=== PATIENT | female | born 1995 | race Hispanic/Latino ===

== ENCOUNTER 2020-09-14 14:54 | Inpatient (IN) | payer OTHER, SELFPAY ==
[2020-09-14] MEDS ORDERED: Ringers Lactate 1,000 ML IV PRN (16:51)
[2020-09-14] MEDS ORDERED: ONDANSETRON 4 MG (ODT) TAB PO PRN (16:54)
[2020-09-14] MEDS ORDERED: ACETAMINOPHEN 500 MG TAB PO PRN (16:54)
[2020-09-14] MEDS ORDERED: Oxycodone HCl/Acetaminophen 1 TAB TAB PO PRN (16:54)
[2020-09-14] MEDS ORDERED: CARBOPROST TROME 250 MCG/ML IM PRN (16:54)
[2020-09-14] MEDS ORDERED: BISACODYL 10 MG RECTAL SUPP PR PRN (16:54)
[2020-09-14] MEDS ORDERED: DOCUSATE NA/SENNA CONC 1 TAB PO PRN (16:54)
[2020-09-14] MEDS ORDERED: METHYLERGONOVINE 0.2MG/ML AMP IM PRN (16:54)
[2020-09-14] MEDS ORDERED: OXYTOCIN/LR 20 UNIT/1,000 ML BAG IV SCH (17:00)
[2020-09-14] MEDS ORDERED: Ringers Lactate 1,000 ML IV SCH (17:00)
[2020-09-14] MEDS ORDERED: IBUPROFEN 600 MG TAB PO PRN (17:13)
[2020-09-14 18:13] LABS: Absolute Lymphocytes (CBC) 3.5 K/uL (0.7-4.9); Basophils % 0.4 % (0-1.3); Hematocrit 41.2 % (36.0-45.0); Lymphocytes % 22.2 % (15.3-44.8); MPV 10.2 fL (7.6-11.3); RBC Red Blood Cell Count 5.21 M/uL (3.86-4.86)
--- NOTE | 2020-09-14 20:40 | HP ---
Date of Admission: 09/14/2020 History Of Present Illness: Kelsea Damon is a 25-year-old, 4, para 3, history of tubal ligati on after her last in [place] [facility], then got again. Saw the people in [facility] onc e or twice according to the . She went into labor and was on the way back to [place] [facility], but decided she could not make it there. She came to our hospital, came in a wheelchair, and within next 15 minutes, delivered spontaneously of an estimated 8-pound female, Apgars 9 and 9. Small first-deg ree laceration sutured with 1 stitch 2-0 chromic under local infiltration. Schultze delivery of the placenta, which was inspected and noted to be intact and normal. Less than 200 cc blood loss. Drop- in lab is being ordered as we have no labs or information. Family History: Grandmother had diabetes. Past Medical History: Patient has had tubal sterilization. Allergies: SHE HAS NO ALLERGIES. Social History: She does not smoke. Physical Examination: HEENT: Clear. Pupils equal, round, reactive to light and accommodation. Conjunctivae well perfused . No oral, lingual, or buccal lesions. Chest and Lungs: Clear. Heart: Without murmurs, thrills, heaves, or rubs. Breasts: Not examined. Abdomen: Term size. Extremities: Clear without edema, cyanosis, or clubbing. Assessment And Plan: Essentially healthy female with a term , precipitous but controlled va ginal delivery, and after tubal sterilization. STEFFANY/CASANDRA Voice ID: [id number]
[2020-09-14 20:41] LABS: RPR (Rapid Plasma Reagin) NON-REACT (NON-REACT)
[2020-09-15] MEDS ORDERED: METHYLERGONOVINE 0.2 MG TAB PO ONE ×2 (01:06→01:12)
[2020-09-15] MEDS: Oxycodone HCl/Acetaminophen 1 TAB TAB PO PRN ×3 (01:07→12:32)
[2020-09-15] MEDS ORDERED: Rho(D) IG (HUMAN) 300 MCG SYR IM ONE ×2 (05:52→08:00)
--- NOTE | 2020-09-15 08:05 | PN ---
Once again, the patient's Rh negative. RhoGAM has been ordered. Nurses assured me that she will get the shot before she is dismissed. STEFFANY/CASANDRA Voice ID: [id number] Report ID: [id number]
--- NOTE | 2020-09-15 08:50 | DS ---
Kelsea Damon is a 25-year-old 4, para 3, seen by a clinic in [place], gave a history that s he had a tubal ligation after last and became again, was on her way to [place] as she was in labor but thought she could not make it and came in here. Delivery shortly after comin g to our Labor and Delivery Unit of a term female, Apgars 9 and 9. No episiotomy. A single first-de gree laceration repaired with 2-0 chromic 1 single stitch after local infiltration. [place] deliver y of the placenta. Estimated blood loss 300 mL or less. The patient is positive for COVID. She is absolutely no symptoms. Full discussion with patient about stay away from family members, who might not do well with the COVID. RPR is negative. Admission hematocrit was 41. Blood type O negative an d will receive RhoGAM, if the baby is Rh positive. Full discussion with the patient. She needs foll ow up with the people in [place] for control options. STEFFANY/CASANDRA Voice ID: [id number] Report ID: [id number]
[2020-09-15 14:18] VITALS: BMI 29.2
[2020-09-15 21:45] VITALS: BP 116/72; TEMP 97.8
[2020-09-17 20:49] LABS: HBsAG Nonreactive (Nonreactive)
== END 2020-09-15 21:15 | disposition home or self-care (01) | DRG 805 ==
LOC: L&D 14:54 → 2ND-WC 14:55
PROVIDERS: ADMIT Specialist; ATTEND Specialist
PROC: 10E0XZZ Delivery of Products of Conception, External Approach (ICD-10-PCS; principal; 2020-09-14)
PROC: 0HQ9XZZ Repair Perineum Skin, External Approach (ICD-10-PCS; 2020-09-14)
DX: O98.52 Other viral diseases complicating childbirth (principal); U07.1 COVID-19; Z37.0 Single live birth; O70.0 First degree perineal laceration during delivery; O26.893 Other specified pregnancy related conditions, third trimester; Z3A.40 40 weeks gestation of pregnancy; Z67.91 Unspecified blood type, Rh negative
CPT/HCPCS: 36415; 85014; 85018; 85025; 86592; 86850; 86901; 87340; J7120; U0003

== ENCOUNTER 2021-11-09 19:20 | Emergency (ER) | payer OTHER, SELFPAY ==
--- OUTSIDE RECORDS SUMMARY | 2021-11-09 19:24 | XMS REPORT | Continuity of Care Document ---
:1995 Author Organization [facility] t Address [address] [place] [address] Care Team Providers Name Role Phone CONY DUKE Attending Clinician Unavailable NURSE, NURSE Attending Clinician Unavailable OUSMANE, DR CLANCY Attending Clinician Unavailable RENETTA, DR PETE GOMEZ Attending Clinician Unavailable ATCORNELL, Attending Clinician Unavailable [facility] Attending Clinician Unavailable Rome LINDO Attending Clinician [phone] LEILANI Attending Clinician [phone] DR KENNA Attending Clinician Unavailable DR OUSMANE Admitting Clinician Unavailable RENETTA, DR GOMEZ Admitting Clinician Unavailable ATCORNELL, Admitting Clinician Unavailable DR KENNA Admitting Clinician Unavailable Problems This patient has no known problems. Allergies, Adverse Reactions, Alerts This patient has no known allergies or adverse reactions. Social History Social Habit Start Date Stop Date Quantity Comments Source Health-related Behavior 2020-07-21 00:00:00 [facility] intake [facility] Sex Assigned At Female Acc [facility] Smoking Status Start Date Stop Date Source Unknown if ever smoked [facility] Medications This patient has no known medications. Vital Signs Vital Name Observation Time Observation Value Comments Source Body height 2018-04-24 08:38:00 62.00 [in_us] [facility] Patient Body Weight 2018-04-24 08:38:00 165.60 [lb_av] [facility] Systolic 2018-04-24 08:38:00 104 mm[Hg] [facility] Diastolic 2018-04-24 08:38:00 62 mm[Hg] [facility] Heart Beat 2018-04-24 08:38:00 79 /min [facility] Body Temperature 2018-04-24 08:38:00 97.80 [degF] [facility] Respiratory Rate 2018-04-24 08:38:00 18 /min [facility] Body mass index 2018-04-24 08:38:00 30.30 kg/m2 [facility] Body height 2018-03-23 08:49:00 62.00 [in_us] [facility] Patient Body Weight 2018-03-23 08:49:00 158.60 [lb_av] [facility] Systolic 2018-03-23 08:49:00 104 mm[Hg] [facility] Diastolic 2018-03-23 08:49:00 58 mm[Hg] [facility] Heart Beat 2018-03-23 08:49:00 80 /min [facility] Body Temperature 2018-03-23 08:49:00 98.50 [degF] [facility] Respiratory Rate 2018-03-23 08:49:00 18 /min [facility] Body mass index 2018-03-23 08:49:00 29.00 kg/m2 [facility] Body height 2017-09-15 15:20:00 62.00 [in_us] [facility] Patient Body Weight 2017-09-15 15:20:00 167.40 [lb_av] [facility] Systolic 2017-09-15 15:20:00 110 mm[Hg] [facility] Diastolic 2017-09-15 15:20:00 51 mm[Hg] [facility] Heart Beat 2017-09-15 15:20:00 81 /min [facility] Body Temperature 2017-09-15 15:20:00 97.90 [degF] [facility] Respiratory Rate 2017-09-15 15:20:00 18 /min [facility] Body mass index 2017-09-15 15:20:00 30.60 kg/m2 [facility] Body height 2016-01-06 14:52:00 62.00 [in_us] [facility] Body Weight 2016-01-06 14:52:00 155.80 [lb_av] [facility] Systolic 2016-01-06 14:52:00 127 mm[Hg] [facility] Diastolic 2016-01-06 14:52:00 71 mm[Hg] [facility] Heart Beat 2016-01-06 14:52:00 80 /min [facility] Body Temperature 2016-01-06 14:52:00 96.80 [degF] [facility] Respiratory Rate 2016-01-06 14:52:00 18 /min [facility] Body mass index 2016-01-06 14:52:00 28.50 kg/m2 [facility] Respiratory Rate 2015-12-24 11:21:00 18 /min [facility] Body mass index 2015-12-24 11:21:00 28.20 kg/m2 [facility] Body height 2015-12-24 11:21:00 62.00 [in_us] [facility] Body Weight 2015-12-24 11:21:00 154.40 [lb_av] [facility] Systolic 2015-12-24 11:21:00 115 mm[Hg] [facility] Diastolic 2015-12-24 11:21:00 68 mm[Hg] [facility] Heart Beat 2015-12-24 11:21:00 78 /min [facility] Body Temperature 2015-12-24 11:21:00 97.50 [degF] [facility] Body height 2015-11-19 11:00:00 62.00 [in_us] [facility] Body Weight 2015-11-19 11:00:00 157.20 [lb_av] [facility] Systolic 2015-11-19 11:00:00 118 mm[Hg] [facility] Diastolic 2015-11-19 11:00:00 77 mm[Hg] [facility] Heart Beat 2015-11-19 11:00:00 84 /min [facility] Body Temperature 2015-11-19 11:00:00 97.40 [degF] [facility] Respiratory Rate 2015-11-19 11:00:00 19 /min [facility] Body mass index 2015-11-19 11:00:00 28.70 kg/m2 [facility] Body height 2015-11-03 13:30:00 62.00 [in_us] [facility] Body Weight 2015-11-03 13:30:00 172.60 [lb_av] [facility] Systolic 2015-11-03 13:30:00 108 mm[Hg] [facility] Diastolic 2015-11-03 13:30:00 68 mm[Hg] [facility] Heart Beat 2015-11-03 13:30:00 90 /min [facility] Respiratory Rate 2015-11-03 13:30:00 22 /min [facility] Body mass index 2015-11-03 13:30:00 31.60 kg/m2 [facility] Body height 2015-10-27 16:46:00 62.00 [in_us] [facility] Patient Body Weight 2015-10-27 16:46:00 175.20 [lb_av] [facility] Systolic 2015-10-27 16:46:00 108 mm[Hg] [facility] Diastolic 2015-10-27 16:46:00 65 mm[Hg] [facility] Heart Beat 2015-10-27 16:46:00 108 /min [facility] Body Temperature 2015-10-27 16:46:00 97.20 [degF] [facility] Respiratory Rate 2015-10-27 16:46:00 20 /min [facility] Body mass index 2015-10-27 16:46:00 32.00 kg/m2 [facility] Procedures Procedure Date / Time Performed Performing Clinician Sour e URINE TEST 2020-07-21 00:00:00 [facility] Encounters Start End Encounter Admission Attending Care Care Encounter Source Date/Time Date/Time Type Type Clinicians Facility Department ID 2021-05-12 2021-05-12 Outpatient DUKE, [facility] [id number] Access 09:00:00 09:00:00 [facility] 2020-07-21 2020-07-21 Outpatient NURSE, [facility] [id number] Access 14:15:00 14:15:00 [facility] 2020-07-21 2020-07-21 Outpatient NURSE, [facility] [id number] Access 14:15:00 14:15:00 NURSE e2-0wj1-92u cd3-49a2-a [facility] 0-ht8pzn562 [id number]-[id number] 0f4 [id number] 2018-09-04 2018-09-05 Outpatient E OUSMANE [facility] MED [id number] [place] 11:53:00 11:50:00 [facility] 2018-06-29 2018-06-29 Outpatient Franklin JACKSON [facility] OB [id number] [place] 08:16:00 10:23:00 PETE [facility] 2018-05-31 2018-05-31 Outpatient C GUICHO [facility] OB [id number] [place] 21:33:00 23:20:00 WOJCIECH [facility] 2018-04-24 2018-04-24 Outpatient [facility] [id number] Access 00:00:00 00:00:00 H, PROVIDER Kieran madalyn 2018-04-24 2018-04-24 Outpatient [facility] [id number] Access 00:00:00 00:00:00 H, PROVIDER e2-2iy1-85q 219-4b 14-b Health 0-bx0qbz988 [id number] 0f4 [id number] 2018-04-24 2018-04-24 Outpatient ATILADE, [facility] [id number] Access 00:00:00 00:00:00 WOJCIECH G e2-5lx5-82s 27d-4725- 8 Health 0-fz3sqb142 [id number] 0f4 [id number] 2018-04-24 2018-04-24 Outpatient DUKE, [facility] [id number] Access 00:00:00 00:00:00 CONY e2-1wp2-19o n53-958h-3 Health 0-uh7gyb043 [id number] 0f4 [id number] 2018-03-29 2018-03-29 Outpatient ATILADE, [facility] [id number] Access 00:00:00 00:00:00 WOJCIECH G e2-1mf8-04m 8df-41d9- 8 Health 0-dy5whf387 [id number] 0f4 [id number] 2018-03-28 2018-03-28 Outpatient C ATILADE, [facility] RAD [id number] 12:28:00 23:59:00 WOJCIECH Medica [facility] 2018-03-26 2018-03-26 Outpatient ATILADE, [facility] [id number] Access 00:00:00 00:00:00 WOJCIECH Peter e2-8ar2-42r 9da-48a3- 9 Health 0-lo7wgk703 [id number] 0f4 [id number] 2018-03-23 2018-03-23 Outpatient [facility] [id number] Access 00:00:00 00:00:00 H, PROVIDER Kieran bergman 2018-03-23 2018-03-23 Outpatient [facility] [id number] Access 00:00:00 00:00:00 H, PROVIDER josias2du0-59m 051-4f c0-a Health 0-cs5akc216 [id number] 0f4 [id number] 2018-03-23 2018-03-23 Outpatient ATILADE, [facility] [id number] Access 00:00:00 00:00:00 WOJCIECHDONALD bean-1hw4-99j bf5-4f2a- 9 Health 0-ih2tpd302 i1w-hvpp11 0f4 ca0b26 2018-02-26 2018-02-26 Outpatient [facility] [id number] Access 00:00:00 00:00:00 H, PROVIDER Kieran bergman 2018-02-26 2018-02-26 Outpatient [facility] [id number] Access 00:00:00 00:00:00 H, PROVIDER vikas-3iw6-03y e0a-4a 03-b Health 0-cv9iqc178 [id number]-c64548 0f4 [id number] 2018-02-26 2018-02-26 Outpatient NURSE, [facility] [id number] Access 00:00:00 00:00:00 NURSE vikas-9bt1-71h 24c-4cca-8 Health 0-wn6yfu291 [id number] 0f4 3b0c8f 2017-09-15 2017-09-15 Outpatient [facility] [id number] Access 00:00:00 00:00:00 H, PROVIDER Kieran bergman 2017-09-15 2017-09-15 Outpatient [facility] [id number] Access 00:00:00 00:00:00 H, PROVIDER josias7uj5-36l d6b-45 59-a Health 0-ad0lvp065 db5-ad17eb 0f4 [id number] 2017-09-15 2017-09-15 Outpatient LEILANI, [facility] 0dn6x2q9-2c b [id number] Access 00:00:00 00:00:00 CONY e2-4pa9-47p [id number] Health 0-qb5fln297 [id number] 0f4 [id number] 2016-01-07 2016-01-07 Outpatient LEILANI, [facility] [id number] [id number] Access 00:00:00 00:00:00 CONY e2-6ue5-83m 1r1-4n75-5 Health 0-yt4jrh812 g91-rf8jpg 0f4 gt949o 2016-01-06 2016-01-06 Outpatient LEILANI, [facility] [id number] [id number] Access 14:52:00 14:52:00 CONY e2-7lw4-45v 011-418a-b Health 0-hs3epr602 [id number]-202270 0f4 78cbba 2016-01-06 2016-01-06 Outpatient [facility] [id number] Access 00:00:00 00:00:00 H, PROVIDER Kieran bergman 2016-01-06 2016-01-06 Outpatient [facility] [id number] Access 00:00:00 00:00:00 H, PROVIDER e2-4qa8-04j b8b-44 39-a Health 0-dl2dcz580 [id number] 0f4 [id number] 2015-12-29 2015-12-29 Outpatient LEILANI, [facility] [id number] b [id number] Access 00:00:00 00:00:00 CONY e2-1ib1-99q [id number] Health 0-hi0oma207 [id number] 0f4 69d3c3 2015-12-28 2015-12-28 Outpatient LEILANI, [facility] [id number] f [id number] Access 00:00:00 00:00:00 CONY e2-6wb7-53o j8v-2d2d-z Health 0-mn6ppe965 c2e-5yt3o2 0f4 [id number] 2015-12-24 2015-12-24 Outpatient LEILANI, [facility] 4lb9z7v3-7l [id number] Access 11:21:00 11:21:00 CONY e2-9oh9-90i 4c2-800m-g Health 0-my3gpg491 [id number] 0f4 31d30d 2015-12-24 2015-12-24 Outpatient [facility] [id number] Access 00:00:00 00:00:00 H, PROVIDER Kieran bergman 2015-12-24 2015-12-24 Outpatient [facility] [id number] Access 00:00:00 00:00:00 H, PROVIDER e2-8qg8-24y 2ff-40 b9-9 Health 0-th5skr148 [id number]-de683x 0f4 [id number] 2015-11-19 2015-11-19 Outpatient LEILANI [facility] 1tw9i3k2-1x 3 [id number] Access 11:00:00 11:00:00 CONY e2-1my1-53h 5i3-7829-0 Health 0-xr5eio021 [id number] 0f4 [id number] 2015-11-19 2015-11-19 Outpatient [facility] [id number] Access 00:00:00 00:00:00 H, PROVIDER Kieran bergman 2015-11-19 2015-11-19 Outpatient [facility] [id number] [id number] Access 00:00:00 00:00:00 H, PROVIDER e2-2bk0-49l edc-4d d7-a Health 0-oa4cbl577 e54-jqk6mb 0f4 [id number] 2015-11-08 2015-11-09 Inpatient C Franklin [facility] [id number] [place] 12:15:00 18:35:00 FUNSHO [facility] 2015-11-06 2015-11-06 Outpatient [facility] [id number] b [id number] Access 00:00:00 00:00:00 CONY e2-9kz2-39c cef-4217-8 Health 0-fz6mol276 4z9-ak1o1y 0f4 [id number] 2015-11-03 2015-11-03 Outpatient [facility] [id number] Access 00:00:00 00:00:00 H, PROVIDER Kieran bergman 2015-11-03 2015-11-03 Outpatient [facility] [id number] Access 00:00:00 00:00:00 H, PROVIDER e2-0dh8-81g 18c-42 df-8 Health 0-zz5enz585 [id number] 0f4 bdeccc 2015-11-03 2015-11-03 Outpatient LEILANI, [facility] 5qy0i3u4-3b [id number] Access 00:00:00 00:00:00 CONY e2-3mh8-67a ff6-4585-b Health 0-og2wkh850 bb4-b0eaad 0f4 [id number] 2015-10-30 2015-10-30 Outpatient DUKE, [facility] 0wy0e0j8-6r b [id number] Access 00:00:00 00:00:00 CONY e2-5dp9-43b 0bd-45da-8 Health 0-gl6oqk318 dd1-b1e5aa 0f4 [id number] 2015-10-28 2015-10-28 Outpatient LEILANI, [facility] 5xj9h5i4-9b [id number] Access 00:00:00 00:00:00 CONY e2-4ab6-62i 12d-499c-a Health 0-wx1bil107 [id number] 0f4 [id number] 2015-10-27 2015-10-27 Outpatient LEILANI, [facility] [id number] [id number] Access 16:46:00 16:46:00 CONY e2-0dv1-97x 2da-442b-9 Health 0-ro1pof735 040-d5c91c 0f4 [id number] 2015-10-27 2015-10-27 Outpatient [facility] [id number] Access 00:00:00 00:00:00 H, PROVIDER Kieran bergman 2015-10-27 2015-10-27 Outpatient [facility] [id number] [id number] Access 00:00:00 00:00:00 H, PROVIDER josias6yn9-64f 62e-4f 97-9 Health 0-ih4vii092 60d-dbae79 0f4 cd1c77 2015-10-15 2015-10-15 Outpatient [facility] [id number] Access 00:00:00 00:00:00 H, PROVIDER Kieran bergman 2015-10-15 2015-10-15 Outpatient [facility] [id number] Access 00:00:00 00:00:00 H, PROVIDER josias7tw1-26p f43-4a f3-a Health 0-vl1qrw055 q8b-53z53s 0f4 e5eb3f 2015-10-13 2015-10-13 Outpatient [facility] [id number] Access 00:00:00 00:00:00 H, PROVIDER Kieran bergman 2015-10-13 2015-10-13 Outpatient [facility] [id number] Access 00:00:00 00:00:00 H, PROVIDER josias1ro5-81x c17-4e 96-9 Health 0-qd8cna344 [id number]-af56be 0f4 [id number] 2015-09-22 2015-09-22 Outpatient [facility] [id number] Access 00:00:00 00:00:00 H, PROVIDER Kieran bergman 2015-09-22 2015-09-22 Outpatient [facility] [id number] Access 00:00:00 00:00:00 H, PROVIDER josias5mx6-67r 4dc-41 72-b Health 0-rc3sja678 9z7-vm7ga5 0f4 [id number] 2015-09-08 2015-09-08 Outpatient [facility] [id number] Access 00:00:00 00:00:00 H, PROVIDER Kieran bergman 2015-09-08 2015-09-08 Outpatient [facility] [id number] Access 00:00:00 00:00:00 H, PROVIDER clair3za6-13k 4e1-43 c8-a Health 0-zz8htn156 [id number] 0f4 [id number] 2015-08-25 2015-08-25 Outpatient [facility] [id number] Access 00:00:00 00:00:00 H, PROVIDER Kieran bergman 2015-08-25 2015-08-25 Outpatient [facility] [id number] [id number] Access 00:00:00 00:00:00 H, PROVIDER clair4gc9-35o 3f1-4f dd-b Health 0-gn4piu145 [id number]-7sv524 0f4 [id number] 0138-10-13 2015-07-28 Outpatient [facility] [id number] Access 00:00:00 00:00:00 H, PROVIDER Kieran bergman 2015-07-28 2015-07-28 Outpatient [facility] [id number] Access 00:00:00 00:00:00 H, PROVIDER clair6zz9-16o 5ce-4c 28-9 Health 0-fb5ath840 [id number]-[id number] 0f4 [id number] 4578-09-14 2015-06-29 Outpatient [facility] [id number] Access 00:00:00 00:00:00 H, PROVIDER Kieran bergman 2015-06-29 2015-06-29 Outpatient [facility] [id number] Access 00:00:00 00:00:00 H, PROVIDER timur8nm8-43c da0-47 ba-8 Health 0-hn1fpv094 [id number]-[id number] 0f4 [id number] 2015-06-15 2015-06-15 Outpatient [facility] [id number] Access 00:00:00 00:00:00 H, PROVIDER Kieran bergman 2015-06-15 2015-06-15 Outpatient [facility] 3rj1o2h9-0p [id number] Access 00:00:00 00:00:00 H, PROVIDER e2-4jd4-18w 12e-48 6e-9 Health 0-zc4bme215 [id number] 0f4 [id number] 2015-05-18 2015-05-18 Outpatient [facility] [id number] Access 00:00:00 00:00:00 H, PROVIDER Kieran bergman 2015-05-18 2015-05-18 [facility] [id number] Access 00:00:00 00:00:00 H, PROVIDER e2-6yt2-97z 24a-43 9a-b [facility] 0-ff3cil038 4bd-a243ff 0f4 [id number] 2015-05-08 2015-05-08 [facility] [id number] Access 00:00:00 00:00:00 H, PROVIDER Kieran bergman 2015-05-08 2015-05-08 [facility] [id number] [id number] Access 00:00:00 00:00:00 H, PROVIDER e2-0en6-07q 9bd-46 b1-b [facility] 0-ct4sgp350 [id number] 0f4 [id number] Results Test Description Test Time Test Comments Results Result Comments Source URINE CULTURE 2018-09-06 10:12:00 Test Item Value Reference Range Interpretation Comme nts Culture Observations (test code = COB1) THREE OR MORE SPECIES OF BA CTERIA ISOLATED. PROBABLE CONTAMINATION. Culture Observations (test code = IDENTIFICATION AND SUSCEPTIBILITY NOT COB17) INDICATED. RECOLLECTION RECOMMENDED BASIC METABOLIC PANEL *WW*2018-09-05 06:06:00 Test Item Value Reference Range Interpretation Comments GLUCOSE (test code = 06D) 93 mg/dL 75-100 SODIUM (test code = 01A) 140 mmol/L 136-145 POTASSIUM (test code = 01B) 3.6 mmol/L 3.6-5.1 CHLORIDE (test code = 04A) 108 mmol/L 98-107 H CO2 (test code = 02A) 23 mmol/L 22-32 ANION GAP (test code = ANG) 12.2 mmol/L BUN (test code = 05D) 9 mg/dL 7-18 CREATININE (test code = 03E) 0.6 mg/dL 0.4-1.1 BUN/CREA (test code = BCR) 16 12-20 CALCIUM (test code = 09D) 8.1 mg/dL 8.3-9.5 L CBC (INCLUDES AUTOMATED DIFFERENTIAL)*[id number] 05:54:00 Test Item Value Reference Range Interpretation Comments WBC (test code = WBC) 9.0 10\S\3/uL 4.5-11.0 RBC (test code = RBC) 4.40 10\S\6/uL 4.30-5.70 HGB (test code = HBG) 11.9 g/dL 12.0-15.5 L HCT (test code = HCT) 36.4 % 35.0-44.0 MCV (test code = MCV) 82.7 fL 81.0-99.0 MCH (test code = MCH) 27.0 pg 27.0-31.0 MCHC (test code = MCHC) 32.7 g/dL 32.0-36.0 RDW (test code = RDW) 14.3 % 11.5-14.5 PLT (test code = PLT) 271 10\S\3/uL 130-400 MPV (test code = MPV) 9.5 fL 9.4-12.4 NEUTROP # (test code = NE#) 4.9 10\S\3/uL 1.6-8.0 LYMPH # (test code = LY#) 3.2 10\S\3/uL 1.1-3.5 MONOCYTE # (test code = MO#) 0.6 10\S\3/uL 0.0-1.1 EOSINOPH # (test code = EO#) 0.2 10\S\3/uL 0.0-0.7 BASOPHIL # (test code = BA#) 0.1 10\S\3/uL 0.0-0.3 IG # (test code = IG#) 0.03 10\S\3/uL 0.00-0.06 NRBC # (test code = NRBC#) 0.00 10\S\3/uL 0.00-0.01 NEUTROPH % (test code = NE%) 54.5 % 35.0-73.0 LYMPH % (test code = LY%) 35.3 % 20.0-55.0 MONO % (test code = MO%) 6.7 % 2.5-10.0 EOSINOPH % (test code = EO%) 2.6 % 0.0-5.0 BASOPHIL % (test code = BA%) 0.6 % 0.0-2.0 IG % (test code = IG%) 0.3 % 0.0-0.8 NRBC% (test code = NRBC%) 0.0 % 0.0-0.2 MANDIFF (test code = WMDIFF) NO NO RBC MORPH (test code = NORMAL WRBCMOR) U/S NON ENDOVAGINAL*WW*2018-09-04 14:51:54PELVIC ULTRASOUND:Location code: [id number] HISTORY: Pain, bleeding. Status post delivery one month a go.Comparison: NoneTECHNIQUE: Transabdominal sonography of the pelvis was performed followed byendovaginal scanning for better characterization of the ovaries. FINDINGS: The uterus is uniform in echogenicity measuring 8.7 x 4.5 x 6.8 cm. The endometrium is unremarkable at 3 mm. The right ovary measures 3.1 x 2.0 x 2.3 cm. The left ovary measures 3.5 x 2.1x 2.0 cm. Small follicles are noted bilaterally. Color flow is normal in theovaries bilaterally. Mild free fluid adjacent to the left ovary with somedebris.IMPRESSION:Mild free fluid adjacent to the left ovary with some debris. No thickenedendometrium.U/S NON [id number] 14:51:54PELVIC ULTRASOUND:Location code: [id number] HISTORY: Pain, bleeding. Status post delivery one month a go.Comparison: NoneTECHNIQUE: Transabdominal sonography of the pelvis was performed followed byendovaginal scanning for better characterization of the ovaries. FINDINGS: The uterus is uniform in echogenicity measuring 8.7 x 4.5 x 6.8 cm. The endometrium is unremarkable at 3 mm. The right ovary measures 3.1 x 2.0 x 2.3 cm. The left ovary measures 3.5 x 2.1x 2.0 cm. Small follicles are noted bilaterally. Color flow is normal in theovaries bilaterally. Mild free fluid adjacent to the left ovary with somedebris.IMPRESSION:Mild free fluid adjacent to the left ovary with some debris. No thickenedendometrium.CT ABDOMEN AND PELVIS WITH CONTRAST2018-09-04 11:28:47CT abdomen and pelvis with contrastLocation Code: [id number] HISTORY: Abdominal painCOMPARISON: NoneT echnique: Helical CT of the abdomen and pelvis was performed following theadministration of intravenous contrast. Thin section axial, sagittal andcoronal images were obtained. Automatic exposure control was utilized. TotalDLP: 937.12 mGycmFINDINGS:The lung bases are clear. The liver, gallbladder, adrenal glands, kidneys, pancreas, and spleen areunremarkable.The unopacified loops of bowel demonstrateno focal thickening or dilatation.The appendix is visualized and is normal. There is no free peritoneal air orfluid. The abdominal aorta is normal in caliber and contour. There is noretroperitoneal ma ss or fluid collection. The urinary bladder is unremarkable.There is no pelvic mass or fluid collection. The bones, skin, and surrounding soft tissues are unremarkable.IMPRESSION:No acute intra-abdominal or pelvic abnormality.LIVER PROFILE 2018-09-04 10:31:00 Test Item Value Reference Range Interpretation Comments BILI TOTAL (test code = 11A) 0.5 mg/dL 0.2-1.0 BILI DIRCT (test code = 12A) 0.1 mg/dL 0.0-0.2 BILI INDIR (test code = BILII) 0.4 mg/dL <=0.8 PROTEIN (test code = 07D) 7.8 g/dL 6.4-8.2 ALBUMIN (test code = 08D) 3.6 g/dL 3.5-4.8 GLOBULIN (test code = GLB) 4.2 g/dL 1.5-3.8 H ALB/GLOB (test code = AGRR) 0.9 1.0-2.6 L ALK PHOS (test code = 35A) 128 IU/L 42-121 H AST (test code = 30A) 12 IU/L <=42 ALT (test code = 31A) 19 IU/L <=78 AMYLASE AND LIPASE 2018-09-04 10:28:00 Test Item Value Reference Range Interpretation Comments AMYLASE (test code = 10A) 51 U/L 28-100 LIPASE (test code = 60A) 98 IU/L 73-393 BASIC METABOLIC PANEL 2018-09-04 10:24:00 Test Item Value Reference Range Interpretation Comments GLUCOSE (test code = 06D) 94 mg/dL 75-100 SODIUM (test code = 01A) 140 mmol/L 136-145 POTASSIUM (test code = 01B) 3.6 mmol/L 3.6-5.1 CHLORIDE (test code = 04A) 107 mmol/L 98-107 CO2 (test code = 02A) 25 mmol/L 22-32 ANION GAP (test code = ANG) 11.3 mmol/L BUN (test code = 05D) 8 mg/dL 7-18 CREATININE (test code = 03E) 0.6 mg/dL 0.4-1.1 BUN/CREA (test code = BCR) 14 12-20 CALCIUM (test code = 09D) 8.3 mg/dL 8.3-9.5 URINALYSIS WITH MICRO 2018-09-04 10:23:00 Test Item Value Reference Range Interpretation Comments COLOR (test code = COLU) YELLOW YELLOW CLARITY (test code = CLA) SLT HAZY CLEAR A GLUCOSE UR (test code = UA NEGATIVE NEGATIVE GLUCOSE) BILI UR (test code = BILE) NEGATIVE NEGATIVE KETONES UR (test code = SCOTT) NEGATIVE NEGATIVE SP GRAVITY (test code = SPGR) 1.025 1.005-1.030 PH UR (test code = PH) 6.0 4.5-8.0 PROTEIN UR (test code = PU) NEGATIVE NEGATIVE UROBIL UR (test code = UROQ) 0.2 EU/dL 0.2-1.0 NITRITE UR (test code = NITRITE) NEGATIVE NEGATIVE BLOOD UR (test code = UA BLOOD) TRACE-INTACT NEGATIVE A LEUK ES UR (test code = LEUK) 2+ NEGATIVE A WBC UR (test code = UWBC) 15 /HPF 0-5 H RBC UR (test code = URBC) 2 /HPF 0-2 EPITH UR (test code = UEPC) FEW /LPF FEW BACTERIA UR (test code = UBACT) FEW /HPF NONE A CAST UR (test code = CAST) /LPF NONE CRYSTAL UR (test code = CRYU) / LPF NONE MUCUS UR (test code = MUC) / HPF NONE AMORPH UR (test code = NORIS) / HPF NONE TRICH UR (test code = UTRICH) /HPF NONE YEAST UR (test code = UY) /HPF NONE SPERM UR (test code = USPERM) /HPF NONE SERUM MONOCLONAL *WW*2018-09-04 10:19:00 Test Item Value Reference Range Interpretation Comments PREG SRM (test code = PGS) NEGATIVE NEGATIVE CBC (INCLUDES AUTOMATED DIFFERENTIAL)*[id number] 10:16:00 Test Item Value Reference Range Interpretation Comments WBC (test code = WBC) 9.5 10\S\3/uL 4.5-11.0 RBC (test code = RBC) 4.71 10\S\6/uL 4.30-5.70 HGB (test code = HBG) 12.8 g/dL 12.0-15.5 HCT (test code = HCT) 38.7 % 35.0-44.0 MCV (test code = MCV) 82.2 fL 81.0-99.0 MCH (test code = MCH) 27.2 pg 27.0-31.0 MCHC (test code = MCHC) 33.1 g/dL 32.0-36.0 RDW (test code = RDW) 14.3 % 11.5-14.5 PLT (test code = PLT) 274 10\S\3/uL 130-400 MPV (test code = MPV) 9.3 fL 9.4-12.4 L NEUTROP # (test code = NE#) 5.3 10\S\3/uL 1.6-8.0 LYMPH # (test code = LY#) 3.3 10\S\3/uL 1.1-3.5 MONOCYTE # (test code = MO#) 0.7 10\S\3/uL 0.0-1.1 EOSINOPH # (test code = EO#) 0.2 10\S\3/uL 0.0-0.7 BASOPHIL # (test code = BA#) 0.1 10\S\3/uL 0.0-0.3 IG # (test code = IG#) 0.04 10\S\3/uL 0.00-0.06 NRBC # (test code = NRBC#) 0.00 10\S\3/uL 0.00-0.01 NEUTROPH % (test code = NE%) 55.6 % 35.0-73.0 LYMPH % (test code = LY%) 34.6 % 20.0-55.0 MONO % (test code = MO%) 7.1 % 2.5-10.0 EOSINOPH % (test code = EO%) 1.8 % 0.0-5.0 BASOPHIL % (test code = BA%) 0.5 % 0.0-2.0 IG % (test code = IG%) 0.4 % 0.0-0.8 NRBC% (test code = NRBC%) 0.0 % 0.0-0.2 MANDIFF (test code = WMDIFF) NO NO RBC MORPH (test code = NORMAL WRBCMOR) URINALYSIS *WW*2018-05-31 23:04:00 Test Item Value Reference Range Interpretation Comments COLOR (test code = COLU) YELLOW YELLOW CLARITY (test code = CLA) CLEAR CLEAR GLUCOSE UR (test code = UA GLUCOSE) NEGATIVE NEGATIVE BILI UR (test code = BILE) NEGATIVE NEGATIVE KETONES UR (test code = SCOTT) TRACE NEGATIVE A SP GRAVITY (test code = SPGR) 1.025 1.005-1.030 PH UR (test code = PH) 6.0 4.5-8.0 PROTEIN UR (test code = PU) NEGATIVE NEGATIVE UROBIL UR (test code = UROQ) 0.2 EU/dL 0.2-1.0 NITRITE UR (test code = NITRITE) NEGATIVE NEGATIVE BLOOD UR (test code = UA BLOOD) NEGATIVE NEGATIVE LEUK ES UR (test code = LEUK) NEGATIVE NEGATIVE AUAM (test code = WAUAM) NO NO WID-U/S > 14 [id number] 14:02:59OBSTETRIC ULTRASOUND Location code: [id number] HISTORY: Z36.2: ENCOUNTER FOR OTHER SCREENING FOLLOW-UPGA: 21 weeks and 3 daysEDD: 08/05/2018GA by today's US: 20 weeks and 0 daysFindings:There is a single intrauterine in variable presentation. Estimatedfetal heart rate is 163 beats per minute. Amniotic fluid index is 16.4 cm. Theplacenta is posterior with grade 0 changes. There is no evidence of previa orabruption. The cervix is closed and measures 3.4 cm. The maternal adnexa areunremarkable. Approximate sonographic age is 20 weeks and 0 days based upon the following:BPD 4.6 cm 19 weeks 6 daysHC 17.0 cm 19 weeks 4 daysAC 15.2 cm 20 weeks 3 daysFL 3.4 cm 20 weeks 5 days ratios are within normal limits. weight estimateWeight: 353 gramsWT%: 26% for 21 weeks 3 daysAnatomic survey reveals no abnormality of the intracranial contents,four-chamber heart, stomach, bilateral kidneys, urinary bladder, 3 vessel cord,cord insertion,spine, and extremities.IMPRESSION: 1. Single intrauterine with an approximate sonographic age of 20weeks 0 days. 2. No abnormality identified.
[2021-11-09] MEDS ORDERED: ONDANSETRON 4 MG/2 ML VIAL ONE (20:52)
[2021-11-09] MEDS ORDERED: NA CHLORIDE 0.9% 1,000 ML ONE (20:52)
[2021-11-09 21:14] LABS: Absolute Lymphocytes (CBC) 1.7 K/uL (0.7-4.9); Hematocrit 40.8 % (36.0-45.0); Lymphocytes % 16.8 % (15.3-44.8); MPV 7.4 fL (7.6-11.3); RBC Red Blood Cell Count 4.92 M/uL (3.86-4.86)
[2021-11-09 21:51] LABS: ALT/SGPT 154 U/L (12-78); AST/SGOT 97 U/L (15-37); Albumin 3.8 g/dL (3.4-5.0); Alkaline Phosphatase 126 U/L (45-117); BUN Blood Urea Nitrogen 6 mg/dL (7-18); Bicarbonate 24 mmol/L (21-32); Bilirubin Direct < 0.1 mg/dL (0-0.2); Bilirubin Total 0.3 mg/dL (0.2-1.0); Glucose Level 105 mg/dL (74-106); Lipase 47 U/L (73-393); Potassium 3.7 mmol/L (3.5-5.1); Protein, Total 8.3 g/dL (6.4-8.2); Sodium Level 139 mmol/L (136-145)
[2021-11-09 21:53] LABS: SARS-COV-2 RT PCR NEGATIVE (NEGATIVE)
[2021-11-09] MEDS ORDERED: KETOROLAC 30 MG/ML INJ ONE (22:30)
[2021-11-09 22:41] LABS: Urine Blood Negative (Negative); Urine Glucose Negative (Negative); Urine Protein Trace (Negative); Urine pH 8.5 (5.0-7.0)
[2021-11-09] MEDS ORDERED: FENTANYL CITR 100 MCG/2 ML ONE (22:59)
--- NOTE | 2021-11-09 23:49 | EDPHYS ---
Physician Documentation [facility] Name: Kelsea Damon Age: 26 yrs Sex: Female : 1995 Arrival Date: 11/09/2021 Time: 19:24 Bed 7 Private MD: ED Physician iMchael Brand HPI: 11/09 20:51 This 26 yrs old Female presents to ER via Ambulatory with complaints of kb Nausea/Vomiting, Headache, Fainting. 20:51 The patient presents to the emergency department with nausea, vomiting. Onset: The kb symptoms/episode began/occurred 2 day(s) ago. Possible causes: unknown. The symptoms are aggravated by nothing. The symptoms are alleviated by nothing. Associated signs and symptoms: Pertinent positives: nausea, vomiting. Severity of symptoms: At their worst the symptoms were mild moderate in the emergency department the symptoms are unchanged. The patient has not experienced similar symptoms in the past. The patient has not recently seen a physician. Pt reports nausea, vomiting and headache that started 2 days ago. States she feels like she is going to pass out at times. . 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 - Social history:: Smoking status: Patient denies any tobacco usage or history of. ROS: 20:51 Constitutional: Negative for fever, chills, and weight loss. kb 20:51 Abdomen/GI: Positive for nausea and vomiting, Negative for abdominal pain, diarrhea. 20:51 Neuro: Positive for headache, near syncope. 20:51 All other systems are negative. Exam: 20:51 Constitutional: This is a well developed, well nourished patient who is awake, alert, kb and in no acute distress. Head/Face: Normocephalic, atraumatic. Eyes: Pupils equal round and reactive to light, extra-ocular motions intact. Lids and lashes normal. Conjunctiva and sclera are non-icteric and not injected. Cornea within normal limits. Periorbital areas with no swelling, redness, or edema. ENT: Moist Mucous membranes Cardiovascular: Regular rate and rhythm with a normal S1 and S2. No gallops, murmurs, or rubs. No pulse deficits. Respiratory: Respirations even and unlabored. No increased work of breathing. Talking in full sentences Abdomen/GI: Soft, non-tender. No distention Skin: Warm, dry with normal turgor. Normal color. MS/ Extremity: Pulses equal, no cyanosis. Neurovascular intact. Full, normal range of motion. Neuro: Awake and alert, GCS 15, oriented to person, place, time, and situation. Moves all extremities. Normal gait. Psych: Awake, alert, with orientation to person, place and time. Behavior, mood, and affect are within normal limits. Vital Signs: 20:22 BP 117 / 80; Pulse 78; Resp 17; Temp 97.8(TE); Pulse Ox 100% ; Weight 89.81 kg (R); ll3 Pain 10/10; 20:38 BP 115 / 75 Supine; Pulse 81; Resp 14; Pulse Ox 99% on R/A; tw5 20:38 BP 130 / 84 Sitting; Pulse 85; Resp 14; Pulse Ox 100% on R/A; tw5 20:38 BP 122 / 85 Standing; Pulse 83; Pulse Ox 99% on R/A; tw5 21:03 BP 117 / 77; Pulse 80; Resp 18; Pulse Ox 97% on R/A; tw5 21:49 BP 110 / 68; Pulse 72; Resp 18; Pulse Ox 100% on R/A; tw5 22:54 BP 108 / 67; Pulse 72; Resp 16 S; Pulse Ox 99% on R/A; as6 23:54 BP 110 / 74; Pulse 70; Resp 18 S; Pulse Ox 99% on R/A; as6 MDM: 20:34 Patient medically screened. kb 20:51 Data reviewed: vital signs, nurses notes. Data interpreted: Pulse oximetry: on room air kb is 99 %. Interpretation: normal. 23:47 Counseling: I had a detailed discussion with the patient and/or guardian regarding: the kb historical points, exam findings, and any diagnostic results supporting the discharge/admit diagnosis, lab results, radiology results, the need for outpatient follow up, a family practitioner, to return to the emergency department if symptoms worsen or persist or if there are any questions or concerns that arise at home. 11/09 20:47 Order name: Basic Metabolic Panel; Complete Time: 21:54 kb 11/09 20:47 Order name: CBC with Diff; Complete Time: 21:18 kb 11/09 20:47 Order name: Hepatic Function; Complete Time: 21:54 kb 11/09 20:47 Order name: Lipase; Complete Time: 21:54 kb 11/09 20:47 Order name: COVID-19/FLU A+B (Document "Date of Onset" if Symptomatic); Complete Time: kb 21:54 11/09 22:22 Order name: US Abdomen Limited kb 11/09 22:40 Order name: Urine Dipstick-Ancillary; Complete Time: 22:42 EDMS 11/09 22:40 Order name: Urine --Ancillary; Complete Time: 23:06 EDMS 11/09 20:28 Order name: Orthostatics; Complete Time: 20:43 kb 11/09 20:47 Order name: IV Saline Lock; Complete Time: 21:03 kb 11/09 20:47 Order name: Labs collected and sent; Complete Time: 21:03 kb 11/09 22:23 Order name: Urine Dipstick-Ancillary (obtain specimen); Complete Time: 22:40 kb Administered Medications: 21:03 Drug: NS 0.9% 1000 ml Route: IV; Rate: 1000 ml; Site: right antecubital; tw5 23:53 Follow up: Response: No adverse reaction; IV Status: Completed infusion; IV Intake: as6 1000ml 21:03 Drug: Zofran (Ondansetron) 4 mg Route: IVP; Site: right antecubital; tw5 21:50 Follow up: Response: No adverse reaction tw5 23:53 Follow up: Response: No adverse reaction as6 22:33 Drug: Ketorolac 15 mg Route: IVP; Site: right antecubital; as6 23:53 Follow up: Response: No adverse reaction as6 22:54 CANCELLED (Physician Discretion): fentaNYL (PF) 50 mcg IVP once; RASS on ADMIN: kb Combtv4, Very Agttd3, Agttd2, Rstlss1, AlertClm0, Drwsy-1, Lt Sdtn-2, Mod Sdtn-3, Dp Sdtn-4, UnArsble-5 22:59 Drug: fentaNYL (PF) 25 mcg Route: IVP; Site: right antecubital; as6 23:53 Follow up: Response: No adverse reaction; RASS: Alert and Calm (0) as6 Disposition: 11/10 00:42 Co-signature as Attending Physician, Michael Brand MD. rn Disposition Summary: 11/09/21 23:48 Discharge Ordered Location: Home kb Condition: Stable kb Diagnosis - Volume depletion, unspecified kb - Nausea with vomiting, unspecified kb Followup: kb - With: Emergency Department - When: As needed - Reason: Worsening of condition Followup: kb - With: Private Physician - When: 2 - 3 days - Reason: Recheck today's complaints, Continuance of care, Re-evaluation by your physician Discharge Instructions: - Discharge Summary Sheet kb - Nausea and Vomiting, Adult, [id number] kb - Dehydration, Adult, [id number] kb Forms: - Medication Reconciliation Form kb - Thank You Letter kb - Antibiotic Education kb - Prescription Opioid Use kb Prescriptions: - Zofran 4 mg Oral Tablet - take 1 tablet by ORAL route every 6 hours As needed; 20 tablet; Refills: 0, kb Product Selection Permitted Signatures: Dispatcher [employer] EDMS Kandace Bianchi, PLASTIC TUBING INSULATION SUPERVISOR-C PLASTIC TUBING INSULATION SUPERVISOR-Ckb Michael Brand MD MD rn Wood, Tiffany tw5 Russel Gregory RN RN as6 Albert Hale RN RN ll3 Corrections: (The following items were deleted from the chart) 11/09 22:47 22:41 URINE --ANCILLARY+UC.LAB.BRZ ordered. EDMS EDMS 22:54 22:54 fentaNYL (PF) 50 mcg IVP once; RASS on ADMIN: Combtv4, Very Agttd3, Agttd2, kb Rstlss1, AlertClm0, Drwsy-1, Lt Sdtn-2, Mod Sdtn-3, Dp Sdtn-4, UnArsble-5 ordered. kb
--- NOTE | 2021-11-09 23:49 | ER ---
Nurse's Notes [facility] Name: eKlsea Damon Age: 26 yrs Sex: Female : 1995 Arrival Date: 11/09/2021 Time: 19:24 Bed 7 Private MD: Diagnosis: Volume depletion, unspecified;Nausea with vomiting, unspecified Presentation: 11/09 20:22 Chief complaint: Patient's son or daughter states: She has been vomiting, C/O headache, ll3 states she feels like she is going to pass out. Chief complaint:. Coronavirus screen: fatigue, headache, nausea, runny nose, Client presents with at least one sign or symptom that may indicate coronavirus-19. Standard/surgical mask placed on the client. Ebola Screen: No symptoms or risks identified at this time. Initial Sepsis Screen: Does the patient meet any 2 criteria? No. Patient's initial sepsis screen is negative. Does the patient have a suspected source of infection? No. Patient's initial sepsis screen is negative. Risk Assessment: Do you want to hurt yourself or someone else? Patient reports no desire to harm self or others. Onset of symptoms was November 09, 2021. Care prior to arrival: Medication(s) given: Tylenol. 20:22 Method Of Arrival: Ambulatory ll3 20:22 Acuity: MORIAH 3 ll3 Triage Assessment: 20:26 General: Appears in no apparent distress. uncomfortable, Behavior is calm, cooperative. ll3 Pain: Complains of pain in Headache. Neuro: Level of Consciousness is awake, alert, obeys commands, Oriented to person, place, time, situation, Reports headache that is the "worst ever". Cardiovascular: Patient's skin is warm and dry. Respiratory: Reports shortness of breath Respiratory effort is even, unlabored, Respiratory pattern is regular, symmetrical, Breath sounds are clear bilaterally. Denies cough. GI: Abdomen is round non-distended, Bowel sounds present X 4 quads. Abd is soft and non tender X 4 quads. Reports constipation, nausea, vomiting. Derm: Skin is pink, warm \\T\\ dry. 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 - Social history:: Smoking status: Patient denies any tobacco usage or history of. Screenin:38 Abuse screen: Denies threats or abuse. Denies injuries from another. Nutritional tw5 screening: No deficits noted. Tuberculosis screening: No symptoms or risk factors identified. Fall Risk. Assessment: 20:38 General: Appears in no apparent distress. Behavior is calm, cooperative, appropriate tw5 for age. Pain: Complains of pain in forehead she states it is headache Pain currently is 10 out of 10 on a pain scale. Neuro: Level of Consciousness is awake, alert, obeys commands, Oriented to person, place, time, situation. Respiratory: Airway is patent Trachea midline Respiratory effort is even, unlabored. 20:43 General: Patient stated that she felt dizzy and unsteady while standing. tw5 21:03 Reassessment: Patient appears in no apparent distress at this time. GI: Abdomen is tw5 non-distended, Bowel sounds present X 4 quads. 21:49 General: Reports "I feel like my body is shaking and my heart is beating fast. ". tw5 Cardiovascular: Rhythm is regular. 23:55 Reassessment: Patient states feeling better. Patient states symptoms have improved. tw5 Vital Signs: 20:22 BP 117 / 80; Pulse 78; Resp 17; Temp 97.8(TE); Pulse Ox 100% ; Weight 89.81 kg (R); ll3 Pain 10/10; 20:38 BP 115 / 75 Supine; Pulse 81; Resp 14; Pulse Ox 99% on R/A; tw5 20:38 BP 130 / 84 Sitting; Pulse 85; Resp 14; Pulse Ox 100% on R/A; tw5 20:38 BP 122 / 85 Standing; Pulse 83; Pulse Ox 99% on R/A; tw5 21:03 BP 117 / 77; Pulse 80; Resp 18; Pulse Ox 97% on R/A; tw5 21:49 BP 110 / 68; Pulse 72; Resp 18; Pulse Ox 100% on R/A; tw5 22:54 BP 108 / 67; Pulse 72; Resp 16 S; Pulse Ox 99% on R/A; as6 23:54 BP 110 / 74; Pulse 70; Resp 18 S; Pulse Ox 99% on R/A; as6 ED Course: 19:24 Patient arrived in ED. kc5 20:26 Triage completed. ll3 20:26 Arm band placed on. ll3 20:28 Kandace Bianchi FNP-C [facility]. kb 20:28 Michael Brand MD is Attending Physician. kb 20:34 Russel Gregory, RN is Primary Nurse. as6 20:58 COVID-19/FLU A+B (Document "Date of Onset" if Symptomatic) Sent. tw5 21:03 Patient has correct armband on for positive identification. Placed in gown. Bed in low tw5 position. Call light in reach. Side rails up X2. Adult w/ patient. manager recovery on. Pulse ox on. NIBP on. Door closed. Noise minimized. Moved to private room. Warm blanket given. Verbal reassurance given. 21:03 Lipase Sent. tw5 21:03 Hepatic Function Sent. tw5 21:03 CBC with Diff Sent. tw5 21:03 Basic Metabolic Panel Sent. tw5 21:03 Initial lab(s) drawn, by oh, sent to lab. COVID swab sent to lab. Inserted saline lock: tw5 20 gauge in right antecubital area, using aseptic technique. Blood collected. 21:04 Primary Nurse role handed off by Russel Gregory, RN tw5 21:04 Cheryl Yoo is Primary Nurse. tw5 21:51 Basic Metabolic Panel Sent. tw5 21:51 Hepatic Function Sent. tw5 21:51 Lipase Sent. tw5 21:51 COVID-19/FLU A+B (Document "Date of Onset" if Symptomatic) Sent. tw5 22:46 Urine --Ancillary Sent. tw5 22:56 US Abdomen Limited In Process Unspecified. EDMS 23:54 No provider procedures requiring assistance completed. IV discontinued, intact, as6 bleeding controlled, No redness/swelling at site. Pressure dressing applied. Administered Medications: 21:03 Drug: NS 0.9% 1000 ml Route: IV; Rate: 1000 ml; Site: right antecubital; tw5 23:53 Follow up: Response: No adverse reaction; IV Status: Completed infusion; IV Intake: as6 1000ml 21:03 Drug: Zofran (Ondansetron) 4 mg Route: IVP; Site: right antecubital; tw5 21:50 Follow up: Response: No adverse reaction tw5 23:53 Follow up: Response: No adverse reaction as6 22:33 Drug: Ketorolac 15 mg Route: IVP; Site: right antecubital; as6 23:53 Follow up: Response: No adverse reaction as6 22:54 CANCELLED (Physician Discretion): fentaNYL (PF) 50 mcg IVP once; RASS on ADMIN: kb Combtv4, Very Agttd3, Agttd2, Rstlss1, AlertClm0, Drwsy-1, Lt Sdtn-2, Mod Sdtn-3, Dp Sdtn-4, UnArsble-5 22:59 Drug: fentaNYL (PF) 25 mcg Route: IVP; Site: right antecubital; as6 23:53 Follow up: Response: No adverse reaction; RASS: Alert and Calm (0) as6 Intake: 23:53 IV: 1000ml; Total: 1000ml. as6 Outcome: 23:48 Discharge ordered by . kb 23:54 Discharged to home ambulatory, with family. as6 23:54 Condition: stable 23:54 Discharge instructions given to patient, family, Instructed on discharge instructions, follow up and referral plans. medication usage, Demonstrated understanding of instructions, follow-up care, medications, Prescriptions given X 1. 23:55 Patient left the ED. as6 Signatures: Dispatcher [employer] Kandace Bazan, MIKEL MORELAND-Cheryl Fitzgerald tw5 Russel Gregory RN RN as6 Albert Hale RN RN 3 Sahra Godinez kc5
[2021-11-10 01:18] VITALS: TEMP 97.8
[2021-11-10 01:27] VITALS: O2SAT 99
[2021-11-10 01:29] VITALS: BP 110/74
--- NOTE | 2021-11-10 08:23 | RAD REPORT ---
EXAM DESCRIPTION: US - Abdomen Exam Limited - 11/09/2021 10:56 pm CLINICAL HISTORY: ABD PAIN Preliminary findings provided at the time of the study. COMPARISON: No comparisons FINDINGS: No gallstones, sludge or other abnormalities within the gallbladder lumen. There is no wal l thickening or pericholecystic fluid. No common duct stone or biliary tree dilatation identified. IMPRESSION: Normal gallbladder and biliary tree ultrasound.
== END 2021-11-09 23:55 | disposition home or self-care (01) ==
LOC: ER 19:20
DX: E86.9 Volume depletion, unspecified (principal); Z20.822 Contact with and (suspected) exposure to COVID-19
CPT/HCPCS: 0240U; 36415; 76705; 80048; 80076; 81003; 81025; 83690; 85025; J2405; J3010; J7030

== ENCOUNTER 2023-03-03 20:24 | Emergency (ER) | payer SELFPAY ==
--- OUTSIDE RECORDS SUMMARY | 2023-03-03 20:32 | XMS REPORT | Continuity of Care Document ---
:1995 Author Organization [facility] t Address [address] [place] [address] [place] [id number] Care Team Providers Name Role Phone Asked, No Pcp Primary Care Physician Unavailable CONY DUKE Attending Clinician Unavailable NURSE, NURSE Attending Clinician Unavailable OUSMANE, DR CLANCY Attending Clinician Unavailable RENETTA, DR PETE GOMEZ Attending Clinician Unavailable ATILADE, DR JEFFREY Attending Clinician Unavailable [facility], PROVIDER Attending Clinician Unavailable ATILADE, WOJCIECH Peter Attending Clinician [phone] CONY DUKE Attending Clinician [phone] KENNA, DR Franklin VERAS Attending Clinician Unavailable OUSMANE, DR CLANCY Admitting Clinician Unavailable RENETTA, DR PETE GOMEZ Admitting Clinician Unavailable ATILADE, DR JEFFREY Admitting Clinician Unavailable KENNA, DR Franklin VERAS Admitting Clinician Unavailable Problems Condition Condition Condition Status Onset Resolution Last Treating Co mments Source Name Details Category Date Date Treatment Clinician Date Spontaneou Spontaneou Disease Active 2017-10 M ethodi s vaginal s vaginal 0-14 st delivery delivery 00:00: Hospit a 00 l Disease Active 2017-10 [facility] 00:00: Hospita 00 l Allergies, Adverse Reactions, Alerts This patient has no known allergies or adverse reactions. Social History Social Habit Start Date Stop Date Quantity Comments Source Health-related 2020-07-21 [facility] 00:00:00 Alcohol intake [facility] History of Social 2019-06-11 2019-06-11 [facility] function 00:00:00 00:00:00 Sex Assigned At [birth year] Met [facility] 00:00:00 00:00:00 Smoking Status Start Date Stop Date Source Unknown if ever smoked [facility] Medications Ordered Filled Start Stop Current Ordering Indication Dosage Frequency Signature Comments Components Source Medication Medication Date Date Medication? Clinician (SIG) Name Name 2017-10 Yes 1{tbl} QD Take 1 Metho di vit,calc76- 0-[address] iron-folic 13:25: mouth Hospit a 29 mg iron- 23 daily. l 1 mg tablet per tablet Immunizations Ordered Immunization Filled Immunization Date Status Commen ts Source Name Name FLUCELVAX QUAD PF 2018-07-[address] 00:00:00 Hospital Vital Signs Vital Name Observation Time Observation Value Comments Source Body height 2018-04-24 08:38:00 62.00 [in_us] [facility] Patient Body Weight 2018-04-24 08:38:00 165.60 [lb_av] [facility] Systolic 2018-04-24 08:38:00 104 mm[Hg] [facility] Diastolic 2018-04-24 08:38:00 62 mm[Hg] [facility] Heart Beat 2018-04-24 08:38:00 79 /min [facility] Body Temperature 2018-04-24 08:38:00 97.80 [degF] [facility] Respiratory Rate 2018-04-24 08:38:00 18 /min [facility] Body mass index 2018-04-24 08:38:00 30.30 kg/m2 [facility] Body height 2018-03-23 08:49:00 62.00 [in_us] [facility] Patient Body Weight 2018-03-23 08:49:00 158.60 [lb_av] [facility] Systolic 2018-03-23 08:49:00 104 mm[Hg] [facility] Diastolic 2018-03-23 08:49:00 58 mm[Hg] [facility] 2018-03-23 08:49:00 80 /min [facility] Body Temperature 2018-03-23 08:49:00 98.50 [degF] [facility] Respiratory Rate 2018-03-23 08:49:00 18 /min [facility] Body mass index 2018-03-23 08:49:00 29.00 kg/m2 [facility] Body height 2017-09-15 15:20:00 62.00 [in_us] [facility] Patient Body Weight 2017-09-15 15:20:00 167.40 [lb_av] [facility] Systolic 2017-09-15 15:20:00 110 mm[Hg] [facility] Diastolic 2017-09-15 15:20:00 51 mm[Hg] [facility] 2017-09-15 15:20:00 81 /min [facility] Body Temperature 2017-09-15 15:20:00 97.90 [degF] [facility] Respiratory Rate 2017-09-15 15:20:00 18 /min [facility] Body mass index 2017-09-15 15:20:00 30.60 kg/m2 [facility] Body height 2016-01-06 14:52:00 62.00 [in_us] [facility] Patient Body Weight 2016-01-06 14:52:00 155.80 [lb_av] [facility] Systolic 2016-01-06 14:52:00 127 mm[Hg] [facility] Diastolic 2016-01-06 14:52:00 71 mm[Hg] [facility] 2016-01-06 14:52:00 80 /min [facility] Body Temperature 2016-01-06 14:52:00 96.80 [degF] [facility] Respiratory Rate 2016-01-06 14:52:00 18 /min [facility] Body mass index 2016-01-06 14:52:00 28.50 kg/m2 [facility] Respiratory Rate 2015-12-24 11:21:00 18 /min [facility] Body mass index 2015-12-24 11:21:00 28.20 kg/m2 [facility] Body height 2015-12-24 11:21:00 62.00 [in_us] [facility] Patient Body Weight 2015-12-24 11:21:00 154.40 [lb_av] [facility] Systolic 2015-12-24 11:21:00 115 mm[Hg] [facility] Diastolic 2015-12-24 11:21:00 68 mm[Hg] [facility] 2015-12-24 11:21:00 78 /min [facility] Body Temperature 2015-12-24 11:21:00 97.50 [degF] [facility] Body height 2015-11-19 11:00:00 62.00 [in_us] [facility] Patient Body Weight 2015-11-19 11:00:00 157.20 [lb_av] [facility] Systolic 2015-11-19 11:00:00 118 mm[Hg] [facility] Diastolic 2015-11-19 11:00:00 77 mm[Hg] [facility] 2015-11-19 11:00:00 84 /min [facility] Body Temperature 2015-11-19 11:00:00 97.40 [degF] [facility] Res[facility] Rate 2015-11-19 11:00:00 19 /min [facility] Body mass index 2015-11-19 11:00:00 28.70 kg/m2 [facility] Body height 2015-11-03 13:30:00 62.00 [in_us] [facility] Patient Body Weight 2015-11-03 13:30:00 172.60 [lb_av] [facility] Systolic 2015-11-03 13:30:00 108 mm[Hg] [facility] Diastolic 2015-11-03 13:30:00 68 mm[Hg] [facility] 2015-11-03 13:30:00 90 /min [facility] Respiratory Rate 2015-11-03 13:30:00 22 /min [facility] Body mass index 2015-11-03 13:30:00 31.60 kg/m2 [facility] Body height 2015-10-27 16:46:00 62.00 [in_us] [facility] Patient Body Weight 2015-10-27 16:46:00 175.20 [lb_av] [facility] Systolic 2015-10-27 16:46:00 108 mm[Hg] [facility] Diastolic 2015-10-27 16:46:00 65 mm[Hg] [facility] 2015-10-27 16:46:00 108 /min [facility] Body Temperature 2015-10-27 16:46:00 97.20 [degF] [facility] Respiratory Rate 2015-10-27 16:46:00 20 /min [facility] Body mass index 2015-10-27 16:46:00 32.00 kg/m2 [facility] Procedures Procedure Date / Time Performed Performing Clinician Sour e URINE TEST 2020-07-21 00:00:00 [facility] Encounters Start End Encounter Admission Attending Care Care Encounter Source Date/Time Date/Time Type Type Clinicians Facility Department ID 2021-05-12 2021-05-12 Outpatient LEILANI, [facility] [id number] Access 09:00:00 09:00:00 CONY [facility] 2020-07-21 2020-07-21 Outpatient NURSE, [facility] [id number] Access 14:15:00 14:15:00 NURSE [facility] 2020-07-21 2020-07-21 Outpatient NURSE, [facility] [id number] Access 14:15:00 14:15:00 NURSE e2-4ji2-25x cd3-49a2-a [facility] 0-[id number]-[id number] 0f4 [id number] 2018-09-04 2018-09-05 [facility] [id number] [place] 11:53:00 11:50:00 ASTON [facility] 2018-06-29 2018-06-29 [facility] [id number] [place] 08:16:00 10:23:00 PETE [facility] 2018-05-31 2018-05-31 [facility] [id number] [place] 21:33:00 23:20:00 WOJCIECH [facility] 2018-04-24 2018-04-[address] [facility] [id number] Access 00:00:00 00:00:00 H, PROVIDER [facility] 2018-04-24 2018-04-24 Outpatient [facility] [id number] Access 00:00:00 00:00:00 H, PROVIDER e2-7he1-82j 219-4b 14-b [facility] 0-[id number] [id number] 0f4 [id number] 2018-04-24 2018-04-24 Outpatient ATLOKESHDE, [facility] [id number] Access 00:00:00 00:00:00 WOJCIECH G e2-8gh7-31j 27d-4725- 8 ealt 0-ru2ofn530 [id number] 0f4 [id number] 2018-04-24 2018-04-24 Outpatient DUKE, [facility] [id number] [facility] 00:00:00 00:00:00 CONY e2-4lb9-49u n99-657b-1 ealt 0-pl7yvb882 [id number] 0f4 [id number] 2018-03-29 2018-03-29 Outpatient ATILADE, [facility] [id number] [facility] 00:00:00 00:00:00 WOJCIECH Peter e2-0vn4-69a 8df-41d9- 8 ealt 0-wn9ela333 [id number] 0f4 bce4c0 2018-03-28 2018-03-28 Outpatient C ATILADE, [facility] [id number] [facility] 12:28:00 23:59:00 WOJCIECH [facility] 2018-03-26 2018-03-26 Outpatient ATILADE, [facility] [id number] [facility] 00:00:00 00:00:00 WOJCIECH Peter e2-2fv5-94p 9da-48a3- 9 ealt 0-pu5btt700 [id number] 0f4 cda2c1 2018-03-23 2018-03-[address] [facility] [id number] [facility] 00:00:00 00:00:00 H, PROVIDER ea lth 2018-03-23 2018-03-23 Outpatient [facility] [id number] [facility] 00:00:00 00:00:00 H, PROVIDER e2-5ui3-72c 051-4f c0-a ealt 0-xt8pyg190 [id number] 0f4 [id number] 2018-03-23 2018-03-23 Outpatient ATILADE, [facility] [id number] [facility] 00:00:00 00:00:00 WOJCIECH G e2-5zv2-21h bf5-4f2a- 9 ealth 0-sy2zux975 x9g-thct20 0f4 ca0b26 2018-02-26 2018-02-[address] [facility] [id number] [facility] 00:00:00 00:00:00 H, PROVIDER [facility] 2018-02-26 2018-02-26 Outpatient [facility] HC [id number] [facility] 00:00:00 00:00:00 H, PROVIDER e2-7ja7-83y e0a-4a 03-b ealth 0-kk3acz608 cef-i23193 0f4 5c0b8e 2018-02-26 2018-02-26 Outpatient NURSE, [facility] [id number] [facility] 00:00:00 00:00:00 NURSE e2-7si6-44f 24c-4cca-8 ealth 0-ei1ock005 [id number] 0f4 3b0c8f 2017-09-15 2017-09-[address] [facility] [id number] [facility] 00:00:00 00:00:00 H, PROVIDER dl [facility] 2017-09-15 2017-09-15 Outpatient [facility] [id number] [facility] 00:00:00 00:00:00 H, PROVIDER e2-8mg1-68a d6b-45 59-a ealth 0-rk7msn526 db5-ad17eb 0f4 [id number] 2017-09-15 2017-09-15 Outpatient DUKE, [facility] [id number] b [id number] [facility] 00:00:00 00:00:00 CONY e2-9pi4-46h [id number] ealth 0-rf7zlk621 714-14dc3f 0f4 [id number] 2016-01-07 2016-01-07 Outpatient DUKE, [facility] [id number] e [id number] [facility] 00:00:00 00:00:00 CONY e2-9zd9-97q 4y2-7v04-9 ealt 0-at4jck464 q20-oe4jit 0f4 ws022l 2016-01-06 2016-01-06 Outpatient LEILANI, [facility] [id number] Access 14:52:00 14:52:00 CONY e2-3ll9-83s 011-418a-b ealt 0-hk9krc913 [id number] 0f4 78cbba 2016-01-06 2016-01-[address] [facility] [id number] [facility] 00:00:00 00:00:00 H, PROVIDER ea lth 2016-01-06 2016-01-06 Outpatient [facility] [id number] Access 00:00:00 00:00:00 H, PROVIDER e2-9fw2-28l b8b-44 39-a ealt 0-ms4hbp963 [id number] 0f4 [id number] 2015-12-29 2015-12-29 Outpatient LEILANI, [facility] [id number] b [id number] Access 00:00:00 00:00:00 CONY e2-2vk7-33h [id number] ealt 0-tw8wet696 b15-8j350d 0f4 69d3c3 2015-12-28 2015-12-28 Outpatient LEILANI, [facility] 4ta6h2d2-7a f [id number] [facility] 00:00:00 00:00:00 CONY e2-1gp9-58i o7c-0l8a-n ealt 0-yk9mxz218 v6n-5au4w3 0f4 [id number] 2015-12-24 2015-12-24 Outpatient LEILANI, [facility] 4co2h1b4-0w 7 [id number] [facility] 11:21:00 11:21:00 CONY e2-2us9-45l 0o9-691v-q ealth 0-cs7brw386 [id number] 0f4 31d30d 2015-12-24 2015-12-[address] [facility] [id number] Access 00:00:00 00:00:00 H, PROVIDER dl vasquez 2015-12-24 2015-12-24 Outpatient [facility] 1jd4g4v3-8m [id number] [facility] 00:00:00 00:00:00 H, PROVIDER e2-8tb8-30b 2ff-40 b9-9 ealt 0-fv0pmb324 095-fc267f 0f4 [id number] 2015-11-19 2015-11-19 Outpatient DUKE, [facility] 7ln0h3c5-1l 3 [id number] [facility] 11:00:00 11:00:00 CONY e2-8gt4-85f 9g3-5257-3 ealt 0-hv8xfy763 [id number] 0f4 [id number] 2015-11-19 2015-11-[address] [facility] [id number] [facility] 00:00:00 00:00:00 H, PROVIDER dl vasquez 2015-11-19 2015-11-19 Outpatient [facility] [id number] [id number] [facility] 00:00:00 00:00:00 H, PROVIDER e2-4te2-38b edc-4d d7-a ealt 0-ua8tlf192 c41-lfo3fw 0f4 b9cbc2 2015-11-08 2015-11-09 Inpatient C Franklin [facility] [id number] [place] 12:15:00 18:35:00 FUNSHO [facility] 2015-11-06 2015-11-06 Outpatient DUKE, [facility] [id number] b [id number] [facility] 00:00:00 00:00:00 CONY e2-1cf3-83y cef-4217-8 ealt 0-lo1uqz538 7z1-dv1b5g 0f4 [id number] 2015-11-03 2015-11-[address] [facility] [id number] Access 00:00:00 00:00:00 H, PROVIDER dl vasquezh 2015-11-03 2015-11-03 Outpatient [facility] [id number] [id number] [facility] 00:00:00 00:00:00 H, PROVIDER e2-1xw4-56h 18c-42 df-8 ealth 0-go8aoy824 [id number] 0f4 bdeccc 2015-11-03 2015-11-03 Outpatient LEILANI, [facility] 3rx0o8o9-0d 4 [id number] [facility] 00:00:00 00:00:00 CONY e2-8gc7-02e ff6-4585-b ealth 0-yr1iur160 bb4-b0eaad 0f4 [id number] 2015-10-30 2015-10-30 Outpatient LEILANI, [facility] 0th0g8d5-1s b [id number] [facility] 00:00:00 00:00:00 CONY e2-9an1-13w 0bd-45da-8 ealth 0-ho9oaz752 dd1-b1e5aa 0f4 [id number] 2015-10-28 2015-10-28 Outpatient LEILANI, [facility] 8ts8v0h3-2t [id number] [facility] 00:00:00 00:00:00 CONY e2-9uy2-02g 12d-499c-a ealth 0-wo2dyj816 [id number] 0f4 [id number] 2015-10-27 2015-10-27 Outpatient LEILANI, [facility] 6ub3p6t3-0l 0 [id number] [facility] 16:46:00 16:46:00 CONY e2-9st7-79v 2da-442b-9 ealth 0-mi7uvo897 040-d5c91c 0f4 fe7cd9 2015-10-27 2015-10-[address] [facility] [id number] [facility] 00:00:00 00:00:00 H, PROVIDER dl [facility] 2015-10-27 2015-10-27 Outpatient [facility] [id number] [facility] 00:00:00 00:00:00 H, PROVIDER e2-6by4-02j 62e-4f 97-9 [facility] 0-ud3wmt309 60d-dbae79 0f4 cd1c77 2015-10-15 2015-10-[address] [facility] [id number] Access 00:00:00 00:00:00 H, PROVIDER dl [facility] 2015-10-15 2015-10-15 Outpatient [facility] [id number] Access 00:00:00 00:00:00 H, PROVIDER e2-9rv3-61x f43-4a f3-a [facility] 0-ut3ocy230 w7k-06g79i 0f4 e5eb3f 2015-10-13 2015-10-[address] [facility] [id number] Access 00:00:00 00:00:00 H, PROVIDER dl [facility] 2015-10-13 2015-10-13 Outpatient [facility] [id number] Access 00:00:00 00:00:00 H, PROVIDER e2-8pd7-21z c17-4e 96-9 [facility] 0-jw3yfl901 2fd-af56be 0f4 [id number] 2015-09-22 2015-09-[address] [facility] [id number] Access 00:00:00 00:00:00 H, PROVIDER dl [facility] 2015-09-22 2015-09-22 Outpatient [facility] [id number] Access 00:00:00 00:00:00 H, PROVIDER e2-0wn9-18h 4dc-41 72-b [facility] 0-ot7mpq179 7y0-ld7og9 0f4 [id number] 2015-09-08 2015-09-[address] [facility] [id number] Access 00:00:00 00:00:00 H, PROVIDER dl vasquez 2015-09-08 2015-09-08 Outpatient [facility] [id number] [facility] 00:00:00 00:00:00 H, PROVIDER e2-0dj8-94i 4e1-43 c8-a [facility] 0-jv0hbi768 [id number] 0f4 [id number] 2015-08-25 2015-08-[address] [facility] [id number] Access 00:00:00 00:00:00 H, PROVIDER dl [facility] 2015-08-25 2015-08-25 Outpatient [facility] [id number] [facility] 00:00:00 00:00:00 H, PROVIDER e2-5ea4-67x 3f1-4f dd-b [facility] 0-fw8xdd081 88d-[id number] 0f4 [id number] 4892-10-13 2015-07-[address] [facility] [id number] Access 00:00:00 00:00:00 H, PROVIDER dl [facility] 2015-07-28 2015-07-28 Outpatient [facility] [id number] Access 00:00:00 00:00:00 H, PROVIDER e2-7if9-33z 5ce-4c 28-9 [facility] 0-dy3pkm231 [id number]-[id number] 0f4 [id number] 0387-09-14 2015-06-[address] [facility] [id number] Access 00:00:00 00:00:00 H, PROVIDER dl [facility] 2015-06-29 2015-06-29 Outpatient [facility] [id number] Access 00:00:00 00:00:00 H, PROVIDER e2-0ih5-74x da0-47 ba-8 [facility] 0-rc7oby485 [id number]-[id number] 0f4 [id number] 2015-06-15 2015-06-[address] [facility] [id number] Access 00:00:00 00:00:00 H, PROVIDER dl vasquez 2015-06-15 2015-06-15 Outpatient [facility] [id number] [id number] [facility] 00:00:00 00:00:00 H, PROVIDER timur9yb1-43e 12e-48 6e-9 [facility] 0-ib4npn218 [id number] 0f4 [id number] 2015-05-18 2015-05-[address] [facility] [id number] [facility] 00:00:00 00:00:00 H, PROVIDER ea [facility] 2015-05-18 2015-05-18 [facility] [id number] [facility] 00:00:00 00:00:00 H, PROVIDER e2-7zb8-81e 24a-43 9a-b [facility] 0-wo7ppi008 4bd-a243ff 0f4 80f0dd 2015-05-08 2015-05-[address] [facility] [id number] [facility] 00:00:00 00:00:00 H, PROVIDER ea [facility] 2015-05-08 2015-05-08 [facility] [id number] [facility] 00:00:00 00:00:00 H, PROVIDER e2-7gh0-09j 9bd-46 b1-b [facility] 0-tn5gez545 [id number] 0f4 [id number] Results Test Description Test Time [...] 8.1 mg/dL 8.3-9.5 L CBC (INCLUDES AUTOMATED DIFFERENTIAL)*[id number] 05:54:00 Test Item Value Reference Range Interpretation [...] WRBCMOR) U/S NON ENDOVAGINAL*WW*2018-09-04 14:51:54PELVIC ULTRASOUND:Location code: [id number] HISTORY: Pain, bleeding. Status post delivery one [...] ovary with some debris. No thickenedendometrium.U/S NON [id number] 14:51:54PELVIC ULTRASOUND:Location code: P8ZYSJZTVQ HISTORY: Pain, bleeding. Status post delivery one [...] 11:28:47CT abdomen and pelvis with contrastLocation Code: Q0YIMZRSNZ HISTORY: Abdominal painCOMPARISON: NoneT echnique: Helical CT of the abdomen and pelvis was performed following theadministration of intravenous contrast. Thin section axial, sagittal andcoronal images were obtained. Automatic exposure control was utilized. TotalDLP: 937.12 mGycmFINDINGS:The lung bases are clear. The liver, gallbladder, adrenal glands, kidneys, pancreas, and spleen areunremarkable.The unopacified loops of bowel demonstrate no focal thickening or dilatation.The appendix is visualized and is normal. There is no free peritoneal air orfluid. The abdominal aorta is normal in caliber and contour. There is noretroperitoneal massor fluid collection. The urinary bladder is unremarkable.There [...] 60A) 98 IU/L 73-393 BASIC METABOLIC PANEL *WW*2018-09-04 10:24:00 Test Item Value Reference Range Interpretation [...] = PGS) NEGATIVE NEGATIVE CBC (INCLUDES AUTOMATED DIFFERENTIAL)*[id number] 10:16:00 Test Item Value Reference Range Interpretation [...] = WAUAM) NO NO WID-U/S > 14 [id number] 14:02:59OBSTETRIC ULTRASOUND Location code: [id number] HISTORY: Z36.2: ENCOUNTER FOR OTHER SCREENING FOLLOW- UPGA: 21 weeks and 3 daysEDD: 08/05/2020GA by today's US: 20 weeks and 0 daysFindings:Thereis a single intrauterine in variable presentation. Estimatedfetal [...] 353 gramsWT%: 26% for 21 weeks 3 daysAnatomi c survey reveals no abnormality of the intracranial contents,four-chamber heart, stomach, bilateral kidneys, urinary bladder, 3 vessel cord,cord insertion, spine, and extremities.IMPRESSION: 1. Single intrauterine with an approximate sonographic age of 20weeks 0 days. 2. No abnormality identified.
[2023-03-03 21:18] LABS: Absolute Lymphocytes (CBC) 4.1 K/uL (0.7-4.9); Hematocrit 41.4 % (36.0-45.0); Lymphocytes % 37.5 % (15.3-44.8); MCV 86.3 fL (80-100); MPV 8.5 fL (7.6-11.3)
[2023-03-03] MEDS ORDERED: ONDANSETRON 4 MG/2 ML VIAL ONE (21:18)
[2023-03-03] MEDS ORDERED: KETOROLAC 30 MG/ML INJ ONE (21:19)
[2023-03-03 21:28] LABS: Specific Gravity 1.022 (1.005-1.030)
[2023-03-03 21:30] LABS: Specific Gravity 1.022 (1.005-1.030); Urine Bacteria <20 /HPF (<20); Urine Bilirubin NEGATIVE (Negative); Urine Blood 1+ (Negative); Urine Clarity Clear (Clear); Urine Color Light-Yellow (Yellow); Urine Glucose NEGATIVE (Negative); Urine Mucus 1+ /HPF (None Seen); Urine Protein NEGATIVE (Negative); Urine RBC <5 /HPF (None Seen); Urine Urobilinogen Normal (Normal)
[2023-03-03 21:44] LABS: Bilirubin Total 0.4 mg/dL (0.2-1.0); Protein, Total 8.2 g/dL (6.4-8.2)
[2023-03-03 21:50] LABS: Potassium 3.7 mEq/L (3.5-5.1)
--- NOTE | 2023-03-03 22:26 | RAD REPORT ---
EXAM DESCRIPTION: CTAbdomen Pelvis W Contrast - 03/03/2023 10:20 pm CLINICAL HISTORY: Abdominal pain. RLQ PAIN COMPARISON: No comparisons TECHNIQUE: Biphasic CT imaging of the abdomen and pelvis was performed with 100 ml non-ionic IV cont rast. All CT scans are performed using dose optimization technique as appropriate and may include automated exposure control or mA/KV adjustment according to patient size. FINDINGS: The lung bases are clear. The liver, spleen, pancreas, adrenal glands and left kidney are within normal limits. 4 mm stone righ t kidney without hydronephrosis. No bowel obstruction, free air, free fluid or abscess. The appendix is normal. No evidence of signi ficant lymphadenopathy. No suspicious bony findings. IMPRESSION: No acute intra-abdominal or pelvic finding. 4 mm nonobstructing right renal calculus.
[2023-03-03] MEDS ORDERED: MORPHINE 4 MG/ML SYR ONE (22:49)
[2023-03-04] MEDS ORDERED: DOXYCYCLINE 100 MG CAP PO ONE (03:00)
[2023-03-04] MEDS ORDERED: metroNIDAZOLE 500 MG TABLET ONE (03:00)
[2023-03-04] MEDS ORDERED: CEFTRIAXONE 1000 MG/VIAL ONE (03:00)
[2023-03-04] MEDS ORDERED: ACETAMINOPHEN 500 MG TAB ONE (03:00)
--- NOTE | 2023-03-04 03:24 | EDPHYS ---
Physician Documentation [facility] Name: Kelsea Weber Age: 27 yrs Sex: Female : 1995 Arrival Date: 03/03/2023 Time: 20:24 Bed 15 Private MD: ED Physician Kg Crespo HPI: 03/03 20:34 This 27 yrs old Female presents to ER via Ambulatory with complaints of bs3 Abdominal Pain. 20:34 Pt notes progressive pain in the rlq since this morning, associated nausea and bs3 anorexia, no fever or chills, no chest pain, sob, never had this pain before, getting worse, nothing makes it better or worse, no urinary symptoms, no vaginal bleeding or discharge, denies any chance that she is . . 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 - Social history:: Smoking status: Patient denies any tobacco usage or history of. ROS: 20:34 Constitutional: Negative for fever, chills bs3 20:34 All other systems are negative. Exam: 20:34 Constitutional: This is a well developed, well nourished patient who is awake, alert, bs3 and in no acute distress. Head/Face: Normocephalic, atraumatic. Eyes: Pupils equal round and reactive to light, extra-ocular motions intact. Lids and lashes normal. ENT: mmm, no posterior phyarngeal erythema Neck: Trachea midline, no thyromegaly, no neck stiffness Chest/axilla: Normal chest wall appearance and motion. Nontender with no deformity. No lesions are appreciated. Cardiovascular: Regular rate and rhythm with a normal S1 and S2. symmetric pulses in upper extremities Respiratory: Lungs have equal breath sounds bilaterally, clear to auscultation, no respiratory distress Abdomen/GI: soft, tender in rlq with guarding, no peritoneal signs. MS/ Extremity: Pulses equal, no cyanosis. Neurovascular intact. Full, normal range of motion. Neuro: Awake and alert, GCS 15, oriented to person, place, time, and situation. Cranial nerves II-XII grossly intact. Motor strength 5/5 in all extremities. Sensory grossly intact. Psych: Awake, alert, with orientation to person, place and time. Behavior, mood, and affect are within normal limits. Vital Signs: 20:43 BP 129 / 89; Pulse 85; Resp 16; Temp 98.4; Pulse Ox 100% ; Weight 63.5 kg; Height 5 ft. vc1 2 in. ; Pain 8/10; 20:50 BP 128 / 90; Pulse 80; Resp 16 S; Pulse Ox 100% on R/A; ha1 21:50 BP 127 / 84; Pulse 80; Resp 16 S; Pulse Ox 100% on R/A; ha1 22:50 BP 140 / 91; Pulse 76; Resp 18 S; Pulse Ox 100% on R/A; ha1 03/04 00:15 BP 123 / 90; Pulse 72; Resp 17; Pulse Ox 98% on R/A; ha1 01:00 BP 119 / 70; Pulse 70; Resp 16 S; Pulse Ox 98% on R/A; ha1 01:55 BP 113 / 67; Pulse 68; Resp 18 S; Pulse Ox 99% ; ha1 02:50 BP 119 / 79; Pulse 69; Resp 19 S; Pulse Ox 97% on R/A; ha1 03/03 20:43 Body Mass Index 25.61 (63.50 kg, 157.48 cm) vc1 03/03 20:43 Pain Scale: Adult vc1 MDM: 03/03 20:28 Patient medically screened. bs3 20:34 Differential diagnosis: appendicitis, bowel obstruction, Dysmenorrhea, Ectopic bs3 , Ovarian Torsion, Pelvic Inflammatory Disease, Pyelonephritis. Data reviewed: vital signs, nurses notes. ED course: We will check labs we will do CT will evaluate for and reassess given the progressive pain not intermittent not sharp and severe and less likely to be ovarian torsion patient denies vaginal discharge therefore less likely to be PID/TOA we will do CT if work-up is nondiagnostic we will consider ultrasound and pelvic exam. 03/04 02:14 ED course: Her work-up was notable for a small cyst, but she has normal flow in her bs3 ovaries, . 02:17 ED course: I therefore performed a pelvic exam and she had brownish discharge she notes bs3 that her LMP is irregular but her last menstrual period was 2 weeks ago she is sexually active with 1 partner she did have cervical motion tenderness, will tx for pid. 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 03/03 20:34 Order name: CBC with Diff; Complete Time: 21:46 3 03/03 20:34 Order name: CMP; Complete Time: 21:57 3 03/03 20:34 Order name: Lipase; Complete Time: 21:57 3 03/03 20:34 Order name: Test, Urine; Complete Time: 21:46 3 03/03 20:34 Order name: Urinalysis w/ reflexes; Complete Time: 21:46 3 03/04 02:28 Order name: GC (GONORR/CHLAMYDIA) Probe 3 03/04 02:28 Order name: Wet Prep; Complete Time: 03:47 3 03/03 20:34 Order name: CT Abd/Pelvis - IV Contrast Only; Complete Time: 22:32 3 03/03 22:37 Order name: US Transvaginal Study (Probe) 3 03/03 20:34 Order name: IV Saline Lock; Complete Time: 21:10 3 03/03 20:34 Order name: Labs collected and sent; Complete Time: 21:10 bs3 Administered Medications: 03/03 21:13 Drug: TORadol - Ketorolac IVP 15 mg Route: IVP; Site: left antecubital; ha1 21:16 Drug: Ondansetron IVP 4 mg Route: IVP; Site: left antecubital; ha1 22:45 Drug: morphine IVP or IV 4 mg Route: IVP; Infused Over: 4 mins; Site: left antecubital; ha1 23:15 Follow up: Response: No adverse reaction; Pain is decreased; RASS: Alert and Calm (0) ha1 03/04 03:15 Follow up: Response: No adverse reaction; Pain is decreased; RASS: Alert and Calm (0) ha1 02:50 Drug: Doxycycline PO 100 mg Route: PO; ha1 03:15 Follow up: Response: No adverse reaction ha1 02:50 Drug: metroNIDAZOLE PO 500 mg Route: PO; ha1 03:15 Follow up: Response: No adverse reaction ha1 02:50 Drug: Acetaminophen PO 1000 mg Route: PO; ha1 03:15 Follow up: Response: No adverse reaction ha1 02:52 Drug: Rocephin IV 500 mg Route: IV; Rate: 1 bolus; Site: left antecubital; ha1 03:15 Follow up: Response: No adverse reaction; IV Status: Completed infusion; IV Intake: [id number] Disposition Summary: 03/04/23 03:24 Discharge Ordered Location: Home bs3 Problem: new bs3 Symptoms: are unchanged bs3 Condition: Fair bs3 Diagnosis - Female pelvic inflammatory disease, unspecified bs3 - Other ovarian cysts bs3 Followup: bs3 - With: Private Physician - When: Upon discharge from the Emergency Department - Reason: Re-evaluation by your physician Discharge Instructions: - Discharge Summary Sheet bs3 - Pelvic Inflammatory Disease bs3 - Pelvic Pain, Female, [id number] bs3 - Ovarian Torsion bs3 Forms: - Medication Reconciliation Form bs3 - Thank You Letter bs3 - Antibiotic Education bs3 Prescriptions: - Flagyl 500 mg Oral Tablet - take 1 tablet by ORAL route every 12 hours for 14 days; 28 tablet; Refills: 0, bs3 Product Selection Permitted - Naprosyn 500 mg Oral Tablet - take 1 tablet by ORAL route 2 times per day take with food; 30 tablet; Refills: bs3 0, Product Selection Permitted - Doxycycline Hyclate 100 mg Oral Tablet - take 1 tablet by ORAL route once daily for 14 days; 28 tablet; Refills: 0, bs3 Product Selection Permitted Signatures: Dispatcher [employer] Rose Mary Mena RN RN Brandy Kumar RN RN ha1 Kg Crespo MD MD bs3
--- NOTE | 2023-03-04 03:24 | ER ---
Nurse's Notes [facility] Name: Kelsea Weber Age: 27 yrs Sex: Female : 1995 Arrival Date: 03/03/2023 Time: 20:24 Bed 15 Private MD: Diagnosis: Female pelvic inflammatory disease, unspecified;Other ovarian cysts Presentation: 03/03 20:43 Chief complaint: Spouse and/or significant other states: She's been having pain in her vc1 right lower stomach since this morning. Coronavirus screen: Vaccine status: Patient reports being unvaccinated. Client denies travel out of the [place] in the last 14 days. At this time, the client does not indicate any symptoms associated with coronavirus-19. Ebola Screen: Patient negative for fever greater than or equal to 101.5 degrees Fahrenheit, and additional compatible Ebola Virus Disease symptoms Patient denies exposure to infectious person. Patient denies travel to an Ebola-affected area in the 21 days before illness onset. No symptoms or risks identified at this time. Initial Sepsis Screen: Does the patient meet any 2 criteria? No. Patient's initial sepsis screen is negative. Does the patient have a suspected source of infection? Yes: Acute abdominal pain. Risk Assessment: Do you want to hurt yourself or someone else? Patient reports no desire to harm self or others. Onset of symptoms was March 03, 2023 at 08:00. 20:43 Method Of Arrival: Ambulatory vc1 20:43 Acuity: MORIAH 3 vc1 Triage Assessment: 20:46 General: Appears in no apparent distress. uncomfortable, Behavior is cooperative, vc1 appropriate for age. Pain: Complains of pain in right lower quadrant Pain does not radiate. Pain currently is 8 out of 10 on a pain scale. Quality of pain is described as sharp, Aggravated by pressure on the area. EENT: No deficits noted. No signs and/or symptoms were reported regarding the EENT system. Neuro: Level of Consciousness is awake, alert, obeys commands, Oriented to person, place, time, situation, Appropriate for age. Cardiovascular: No deficits noted. Respiratory: Airway is patent Respiratory effort is even, unlabored, Respiratory pattern is regular, symmetrical. GI: Abdomen is flat, non-distended, Abd is soft Abdomen is tender to palpation in right lower quadrant. GI: Patient currently denies constipation, nausea. : No deficits noted. No signs and/or symptoms were reported regarding the genitourinary system. : Denies burning with urination, urinary frequency. Derm: No deficits noted. No signs and/or symptoms reported regarding the dermatologic system. Musculoskeletal: No deficits noted. No signs and/or symptoms reported regarding the musculoskeletal system. 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 - Social history:: Smoking status: Patient denies any tobacco usage or history of. Screenin:48 [facility] ED Fall Risk Assessment (Adult) History of falling in the last 3 months, vc1 including since admission No falls in past 3 months (0 pts) Confusion or Disorientation No (0 pts) Intoxicated or Sedated No (0 pts) Impaired Gait No (0 pts) Mobility Assist Device Used No (0 pt) Altered Elimination No (0 pt) Score/Fall Risk Level 0 - 2 = Low Risk Oriented to surroundings, Maintained a safe environment, Educated pt \T\ family on fall prevention, incl call for assistance when getting out of bed. Abuse screen: Denies threats or abuse. Nutritional screening: No deficits noted. Tuberculosis screening: No symptoms or risk factors identified. Assessment: 20:48 GI: Bowel sounds present X 4 quads. vc1 22:30 Reassessment: Patient and/or family updated on plan of care and expected duration. Pain ha1 level reassessed. Patient is alert, oriented x 3, equal unlabored respirations, skin warm/dry/pink. pain 9/10. Notified care provider. Patient states symptoms have not improved. 23:20 Reassessment: Patient and/or family updated on plan of care and expected duration. Pain ha1 level reassessed. Patient is alert, oriented x 3, equal unlabored respirations, skin warm/dry/pink. Patient states feeling better. Patient states symptoms have improved. 03/04 00:30 Reassessment: Patient and/or family updated on plan of care and expected duration. Pain ha1 level reassessed. Patient is alert, oriented x 3, equal unlabored respirations, skin warm/dry/pink. pain 8/10. notified in shift. 01:30 Reassessment: Patient and/or family updated on plan of care and expected duration. Pain ha1 level reassessed. Patient is alert, oriented x 3, equal unlabored respirations, skin warm/dry/pink. 02:30 Reassessment: Patient and/or family updated on plan of care and expected duration. Pain ha1 level reassessed. Patient is alert, oriented x 3, equal unlabored respirations, skin warm/dry/pink. 02:30 Reassessment: Patient and/or family updated on plan of care and expected duration. Pain ha1 level reassessed. Patient is alert, oriented x 3, equal unlabored respirations, skin warm/dry/pink. Patient states feeling better. Patient states symptoms have improved. Vital Signs: 03/03 20:43 BP 129 / 89; Pulse 85; Resp 16; Temp 98.4; Pulse Ox 100% ; Weight 63.5 kg; Height 5 ft. vc1 2 in. ; Pain 8/10; 20:50 BP 128 / 90; Pulse 80; Resp 16 S; Pulse Ox 100% on R/A; ha1 21:50 BP 127 / 84; Pulse 80; Resp 16 S; Pulse Ox 100% on R/A; ha1 22:50 BP 140 / 91; Pulse 76; Resp 18 S; Pulse Ox 100% on R/A; ha1 03/04 00:15 BP 123 / 90; Pulse 72; Resp 17; Pulse Ox 98% on R/A; ha1 01:00 BP 119 / 70; Pulse 70; Resp 16 S; Pulse Ox 98% on R/A; ha1 01:55 BP 113 / 67; Pulse 68; Resp 18 S; Pulse Ox 99% ; ha1 02:50 BP 119 / 79; Pulse 69; Resp 19 S; Pulse Ox 97% on R/A; ha1 03/03 20:43 Body Mass Index 25.61 (63.50 kg, 157.48 cm) vc1 03/03 20:43 Pain Scale: Adult vc1 ED Course: 03/03 20:28 Patient arrived in ED. [id number] 20:29 Kg Crespo MD is Attending Physician. bs3 20:45 Triage completed. vc1 20:47 Arm band placed on right wrist. vc1 20:49 Patient has correct armband on for positive identification. Bed in low position. Call vc1 light in reach. Adult w/ patient. Pulse ox on. NIBP on. 20:50 Brandy Ocasio, RN is Primary Nurse. ha1 21:10 CBC with Diff Sent. ha1 21:10 CMP Sent. ha1 21:10 Lipase Sent. ha1 21:17 Test, Urine Sent. ha1 21:17 Urinalysis w/ reflexes Sent. ha1 22:22 CT Abd/Pelvis - IV Contrast Only In Process Unspecified. EDMS 23:48 US Transvaginal Study (Probe) In Process Unspecified. EDMS 03/04 02:30 Assist provider with pelvic exam: Set up pelvic tray. Performed by Kg Crespo MD ha1 Specimens sent to lab. Patient tolerated well. 03:24 GC (GONORR/CHLAMYDIA) Probe Sent. ha1 03:24 Wet Prep Sent. ha1 03:47 IV discontinued, intact, bleeding controlled, No redness/swelling at site. Pressure ha1 dressing applied. Administered Medications: 03/03 21:13 Drug: TORadol - Ketorolac IVP 15 mg Route: IVP; Site: left antecubital; ha1 21:16 Drug: Ondansetron IVP 4 mg Route: IVP; Site: left antecubital; ha1 22:45 Drug: morphine IVP or IV 4 mg Route: IVP; Infused Over: 4 mins; Site: left antecubital; ha1 23:15 Follow up: Response: No adverse reaction; Pain is decreased; RASS: Alert and Calm (0) ha1 03/04 03:15 Follow up: Response: No adverse reaction; Pain is decreased; RASS: Alert and Calm (0) ha1 02:50 Drug: Doxycycline PO 100 mg Route: PO; ha1 03:15 Follow up: Response: No adverse reaction ha1 02:50 Drug: metroNIDAZOLE PO 500 mg Route: PO; ha1 03:15 Follow up: Response: No adverse reaction ha1 02:50 Drug: Acetaminophen PO 1000 mg Route: PO; ha1 03:15 Follow up: Response: No adverse reaction ha1 02:52 Drug: Rocephin IV 500 mg Route: IV; Rate: 1 bolus; Site: left antecubital; ha1 03:15 Follow up: Response: No adverse reaction; IV Status: Completed infusion; IV Intake: [id number] Medication: 03/03 20:49 VIS not applicable for this client. vc1 Intake: 03/04 03:15 IV: 50ml; Total: 50ml. ha1 Outcome: 03:24 Discharge ordered by . bs3 03:46 Discharged to home ambulatory, with family. ha1 03:46 Condition: stable 03:46 Discharge instructions given to patient, family, Instructed on discharge instructions, follow up and referral plans. medication usage, Demonstrated understanding of instructions, follow-up care, medications, Prescriptions given X 3. 03:52 Patient left the ED. ha1 Signatures: Dispatcher [employer] EDMS Megan Camara [id number] Rose Mary Anderson RN RN vc1 Brandy Ocasio RN RN ha1 Kg Crespo MD MD bs3
[2023-03-04 04:03] VITALS: TEMP 98.4
[2023-03-04 04:12] VITALS: BP 119/79; O2SAT 97
--- NOTE | 2023-03-04 21:53 | RAD REPORT ---
EXAM DESCRIPTION: US - Transvaginal Study Probe - 03/03/2023 11:47 pm CLINICAL HISTORY: Right pelvic pain TECHNIQUE: Real-time transvaginal pelvic ultrasound with image documentation. Transvaginal imaging was used for better evaluation of the endometrium and adnexa. COMPARISON: No relevant prior studies available. FINDINGS: Uterus/cervix: The uterus is retroverted and measures 7.1 x 3.7 x 5.1 cm. The endometr ial stripe measures 2 mm in thickness. No myometrial mass. Right ovary: The right ovary measures 3 x 2.3 x 3.1 cm. There is a 2.3 cm anechoic/simple cyst. Normal blood flow. Left ovary: The left ovary measures 2.9 x 2.2 x 2.3 cm. Normal blood flow. Free fluid: No free fluid. Bladder: Empty bladder which cannot be evaluated with this probe. IMPRESSION: 2.3 cm right ovarian cyst. No follow-up imaging is recommended. Reference: Radiology 2019 Nov;293(2):[id number] Electronically signed by: Rosa Isela Urrutia MD 03/04/2023 12:26 AM CDT Due to temporary technical issues with the PACS/Fluency reporting system, reports are being signed by the in house radiologists without review as a courtesy to insure prompt reporting. The interpreting radiologist is fully responsible for the content of the report.
== END 2023-03-04 03:52 | disposition home or self-care (01) ==
LOC: ER 20:24
DX: N73.9 Female pelvic inflammatory disease, unspecified (principal); N83.299 Other ovarian cyst, unspecified side
CPT/HCPCS: 36415; 74177; 76830; 80053; 81001; 81025; 83690; 85025; 87210; 87490; 87590; J0696; J2405; Q9967

== ENCOUNTER → 2023-11-12 | Emergency (ER) | payer SELFPAY ==
[~2023-11-12] MED LIST: FENTANYL CITR 100 MCG/2 ML ONE; FOLIC ACID 1 MG, MULTIVITAMINS INJ 10 ML, THIAMINE HCL 100 MG in NA CHLORIDE 0.9% 1,000 ML IV ONE; NA CHLORIDE 0.9% 1,000 ML ONE; ONDANSETRON 4 MG/2 ML VIAL ONE; PANTOPRAZOLE 40 MG INJ ONE; THIAMINE 200 MG/2 ML INJ ONE
[2023-11-12 06:52] LABS: Absolute Lymphocytes (CBC) 4.2 K/uL (0.7-4.9); Lymphocytes % 45.9 % (15.3-44.8); MCV 86.9 fL (80-100); MPV 7.6 fL (7.6-11.3); Platelets 365 thou/uL (152-406); RBC Red Blood Cell Count 4.61 M/uL (3.86-4.86)
--- NOTE | 2023-11-12 07:09 | RAD REPORT ---
EXAM DESCRIPTION: US - Abdomen Exam Limited - 11/12/2023 7:00 am CLINICAL HISTORY: ABD PAIN COMPARISON: Abdomen Pelvis W Contrast dated 03/03/2023 FINDINGS: The gallbladder demonstrates no gallstones. No pericholecystic fluid or gallbladder wall t hickening. The common bile duct is normal measuring 3 mm. The liver demonstrates no findings of intrahepatic biliary dilatation. IMPRESSION: Unremarkable examination. No cholelithiasis, acute cholecystitis, or biliary duct dilat ation.
--- NOTE | 2023-11-12 07:09 | RAD REPORT ---
EXAM DESCRIPTION: RAD - Chest Single View - 11/12/2023 7:03 am CLINICAL HISTORY: CHEST PAIN COMPARISON: <Comparisons> FINDINGS: Lines: None. Lungs: No evidence of edema or pneumonia. Pleural: No significant pleural effusions or pneumothorax. Cardiac: The heart size is within normal limits. Mediastinum: Within normal limits. Bones: No acute fractures. Other: None IMPRESSION: No acute cardiopulmonary disease.
[2023-11-12 07:14] LABS: Protime INR 1.02
[2023-11-12 07:15] LABS: ALT/SGPT 20 U/L (13-56); AST/SGOT 10 U/L (15-37); Alkaline Phosphatase 84 U/L (45-117); BUN Blood Urea Nitrogen 11 mg/dL (7-18); Bicarbonate 24 mEq/L (21-32); Bilirubin Total 0.3 mg/dL (0.2-1.0); Glomerular Filtration Rate 113 ml/min (=/>90); Glucose Level 103 mg/dL (74-106); Potassium 3.8 mEq/L (3.5-5.1); Protein, Total 8.1 g/dL (6.4-8.2); Sodium Level 141 mEq/L (136-145)
[2023-11-12 07:16] LABS: Bilirubin Direct < 0.1 mg/dL (0-0.2); Bilirubin Indirect, Calculated ND mg/dL (0.2-0.8)
--- NOTE | 2023-11-12 08:16 | RAD REPORT ---
EXAM DESCRIPTION: CT - Head C Spine Cap Marcy Castillo - 11/12/2023 8:05 am CLINICAL HISTORY: Trauma, head and neck injury. Chest, abdomen and pelvis pain. PAIN COMPARISON: No comparisons TECHNIQUE: CT head without contrast. CT cervical spine without contrast with coronal and sagittal reformatted images. CT chest, abdomen and pelvis with coronal and sagittal reformatted images of the spine. All CT scans are performed using dose optimization technique as appropriate and may include automated exposure control or mA/KV adjustment according to patient size. FINDINGS: CT HEAD WITHOUT CONTRAST: No intracranial hemorrhage, hydrocephalus or extra-axial fluid collection. No acute large vascular te rritory infarct. The paranasal sinuses and mastoids are clear. The calvarium is intact. CT CERVICAL SPINE WITHOUT CONTRAST: No fracture or subluxation. The prevertebral soft tissues are normal in thickness. CT CHEST, ABDOMEN, PELVIS: Thorax: Chest Wall: No abnormal mass Lungs: No acute abnormality. Pleura: No effusions or pneumothorax. Elsa/Mediastinum: No lymphadenopathy. Aorta/Pulmonary Arteries: Unremarkable Heart: Normal size. Abdomen/Pelvis: Liver: No acute abnormality or suspicious lesions. Biliary: No biliary ductal dilatation. Stomach: No significant focal abnormality. Duodenum: No significant focal abnormality. Pancreas: No significant abnormality. Spleen: No significant abnormality. Adrenal: No suspicious lesions. Kidney/ureter: No hydronephrosis. 4 mm stone lower pole right kidney. Retroperitoneum: No retroperitoneal adenopathy. Vascular: No aneurysm. Bowel: No significant focal abnormality. Peritoneum: No ascites or free air. Bladder: Grossly unremarkable. Reproductive: No adnexal masses. Bones: No acute fracture. Other: n/a IMPRESSION: 1. No acute intracranial abnormality. 2. No acute fracture or traumatic malalignment of the cervical spine. 3. No evidence of significant acute trauma or other acute findings in the chest, abdomen, or pelvis.
--- NOTE | 2023-11-12 08:35 | EDPHYS ---
Physician Documentation [facility] Name: Kelsea Weber Age: 28 yrs Sex: Female : 1995 Arrival Date: 11/12/2023 Time: 06:14 Bed 3 Private MD: ED Physician Xavier Dennis HPI: 11/12 06:40 This 28 yrs old Female presents to ER via Wheelchair with complaints of etoh, julian right chest pain, abd pain , denies trauma. 06:40 The patient or guardian reports chest pain that is located primarily in the anterior julian chest wall, right. The patient presents with abdominal pain in the epigastric area, in the upper abdomen, in the right upper quadrant. Onset: The symptoms/episode began/occurred just prior to arrival, this morning. etoh , cp, abd pain. The symptoms do not radiate. Associated signs and symptoms: none. Modifying factors: The symptoms are alleviated by remaining still, the symptoms are aggravated by movement, touching the area. 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 Flu vaccine is not up to date. - Social history:: Smoking status: Patient denies any tobacco usage or history of. - Family history:: not pertinent. ROS: 06:40 Constitutional: Negative for fever, chills, and weight loss, Eyes: Negative for injury, julian pain, redness, and discharge, ENT: Negative for injury, pain, and discharge, Neck: Negative for injury, pain, and swelling, Cardiovascular: Negative for chest pain, palpitations, and edema, Back: Negative for injury and pain, : Negative for injury, bleeding, discharge, and swelling, MS/Extremity: Negative for injury and deformity, Skin: Negative for injury, rash, and discoloration, Neuro: Negative for headache, weakness, numbness, tingling, and seizure, Psych: Negative for depression, anxiety, suicide ideation, homicidal ideation, and hallucinations, Allergy/Immunology: Negative for hives, rash, and allergies, Endocrine: Negative for neck swelling, polydipsia, polyuria, polyphagia, and marked weight changes, Hematologic/Lymphatic: Negative for swollen nodes, abnormal bleeding, and unusual bruising, 06:40 Respiratory: Positive for shortness of breath, 06:40 Abdomen/GI: Positive for abdominal pain, nausea, 06:40 MS/extremity: Negative for acute changes, Exam: 06:40 Constitutional: This is a well developed, well nourished patient who is awake, alert, julian and in no acute distress. Head/Face: Normocephalic, atraumatic. Eyes: Pupils equal round and reactive to light, extra-ocular motions intact. Lids and lashes normal. Conjunctiva and sclera are non-icteric and not injected. Cornea within normal limits. Periorbital areas with no swelling, redness, or edema. ENT: Nares patent. No nasal discharge, no septal abnormalities noted. Tympanic membranes are normal and external auditory canals are clear. Oropharynx with no redness, swelling, or masses, exudates, or evidence of obstruction, uvula midline. Mucous membranes moist. Neck: Trachea midline, no thyromegaly or masses palpated, and no cervical lymphadenopathy. Supple, full range of motion without nuchal rigidity, or vertebral point tenderness. No Meningismus. Chest/axilla: Normal chest wall appearance and motion. Nontender with no deformity. No lesions are appreciated. Cardiovascular: Regular rate and rhythm with a normal S1 and S2. No gallops, murmurs, or rubs. Normal PMI, no JVD. No pulse deficits. Respiratory: Lungs have equal breath sounds bilaterally, clear to auscultation and percussion. No rales, rhonchi or wheezes noted. No increased work of breathing, no retractions or nasal flaring. Back: No spinal tenderness. No costovertebral tenderness. Full range of motion. Skin: Warm, dry with normal turgor. Normal color with no rashes, no lesions, and no evidence of cellulitis. MS/ Extremity: Pulses equal, no cyanosis. Neurovascular intact. Full, normal range of motion. Neuro: Awake and alert, GCS 15, oriented to person, place, time, and situation. Cranial nerves II-XII grossly intact. Motor strength 5/5 in all extremities. Sensory grossly intact. Cerebellar exam normal. Normal gait. 06:40 ECG was reviewed by the Attending Physician. 06:40 Abdomen/GI: Bowel sounds: normal, Palpation: mild abdominal tenderness, in the epigastric area and right upper quadrant, Liver: no appreciated palpable abnormalities, Hernia: not appreciated, Vital Signs: 06:28 BP 103 / 76; Pulse 95; Resp 13; Pulse Ox 100% ; Weight 83.01 kg; Height 5 ft. 5 in. ; vc1 Pain 10/10; 08:00 BP 110 / 70; Pulse 98; Resp 17; Pulse Ox 94% ; bp 06:28 Body Mass Index 30.45 (83.01 kg, 165.1 cm) vc1 06:28 Pain Scale: Adult vc1 MDM: 06:21 Patient medically screened. [facility] 06:45 Differential diagnosis: abnormal EKG, acute pericarditis, anxiety, chest wall pain, julian Cholelithiasis costochondritis, esophagitis, pancreatitis, pleurisy, pneumonia, unstable angina, bowel obstruction, coronary artery disease, Cholelithiasis, gastritis, gastroesophageal reflux disease, Mesenteric ischemia or infarction, non-specific abd pain, pancreatitis, Peptic Ulcer Disease, Ureterolithiasis, urinary tract infection. HEART Score: History: Slightly Suspicious (0), ECG: Normal (0), Age: < or = 45 years (0), Risk Factors: No Risk Factors Known (0), Troponin:. Data reviewed: vital signs, nurses notes, lab test result(s), EKG, radiologic studies, CT scan, plain films, ultrasound. Consideration of Admission/Observation Escalation of care including admission/observation considered. I considered the following discharge prescriptions or medication management in the emergency department Medications were administered in the Emergency Department. See DEC. 11/12 06:22 Order name: Acetaminophen; Complete Time: 08:23 [facility] 11/12 06:22 Order name: Basic Metabolic Panel; Complete Time: 08:23 [facility] 11/12 06:22 Order name: CBC with Diff; Complete Time: 07:10 [facility] 11/12 06:22 Order name: ETOH Level; Complete Time: 07:10 [facility] 11/12 06:22 Order name: Hepatic Function; Complete Time: 08:23 11/12 06:22 Order name: PT-INR; Complete Time: 08:23 [facility] 11/12 06:22 Order name: Ptt, Activated; Complete Time: 08:23 [facility] 11/12 06:22 Order name: Salicylate; Complete Time: 08:23 julian 11/12 06:25 Order name: Lipase; Complete Time: 08:23 julian 11/12 06:32 Order name: Test, Serum; Complete Time: 08:23 vc1 11/12 06:25 Order name: US Abdomen Limited; Complete Time: 07:10 julian 11/12 06:39 Order name: CT Traumagram (Head C Spine CAP W Con); Complete Time: 08:23 julian 11/12 06:42 Order name: CXR XRAY; Complete Time: 07:10 11/12 06:22 Order name: EKG; Complete Time: 06:23 julian 11/12 06:22 Order name: EKG - Nurse/Tech; Complete Time: 06:28 julian 11/12 06:22 Order name: IV Saline Lock; Complete Time: 06:41 [facility] 11/12 06:22 Order name: Labs collected and sent; Complete Time: 06:41 julian 11/12 06:22 Order name: Suicide Screening (Mobile); Complete Time: 07:38 julian 11/12 06:22 Order name: Seizure Precautions; Complete Time: 07:37 [facility] EC:40 Rate is 105 beats/min. Rhythm is regular. QRS [place] is Normal. RI interval is normal. julian QRS interval is normal. QT interval is normal. No Q waves. T waves are Normal. No ST changes noted. Clinical impression: NSR w/ Non-specific ST/T Changes and No evidence of ischemia. Interpreted by me. Reviewed by me. Administered Medications: 08:00 Drug: NS 0.9% IV 1000 ml IV at 1 bolus Per protocol; 1000 mL bolus Route: IV; Rate: 1 bp bolus; Site: left antecubital; 11:05 Follow up: IV Status: Completed infusion; IV Intake: 1000ml bp 08:00 Drug: Thiamine IV 100 mg IV at bolus once Route: IV; Rate: bolus; Site: left bp antecubital; 11:05 Follow up: IV Status: Completed infusion; IV Intake: 100ml bp 08:00 Drug: Pantoprazole IVP 40 mg IVP once Route: IVP; Site: left antecubital; bp 11:04 Follow up: Response: No adverse reaction bp 08:00 Drug: fentaNYL (PF) IVP 25 mcg IVP once Route: IVP; Site: left antecubital; bp 11:03 Follow up: Response: No adverse reaction bp 08:00 Drug: Ondansetron IVP 4 mg IVP once; over 2 minutes Route: IVP; Site: left antecubital; bp 11:03 Follow up: Response: No adverse reaction bp 11:03 Not Given (Patient Refused): Banana Bag - (ns 0.9% 1000 ml, folic acid ivpb 1 mg, bp [id number] mg, multivitamin1 amp) IV at 500 ml/hr once Disposition Summary: 11/12/23 08:34 Discharge Ordered Notes: Location: Home rt Problem: new rt Symptoms: have improved rt Condition: Stable rt Diagnosis - Alcohol use, unspecified rt - Paresthesia of skin rt - Chest pain, unspecified rt Followup: rt - With: Private Physician - When: 2 - 3 days - Reason: Discharge Instructions: - Discharge Summary Sheet rt - Nonspecific Chest Pain, Adult rt - Paresthesia, [id number] rt Forms: - Work release form eb - Medication Reconciliation Form rt - Thank You Letter rt - Antibiotic Education rt - Prescription Opioid Use rt - Patient Portal Instructions rt - Leadership Thank You Letter rt Signatures: Dispatcher [employer] EDMS Alexis Street MD MD cha Peltier, Brian, RN RN bp Rose Mary Anderson RN RN vc1 Xavier Dennis MD MD rt Corrections: (The following items were deleted from the chart) 06:52 06:23 Head Brain Wo Cont+CT.RAD.BRZ ordered. EDMS EDMS 06:53 06:26 Abdomen Pelvis W Con+CT.RAD.BRZ ordered. EDMS EDMS
--- NOTE | 2023-11-12 08:35 | ER ---
Nurse's Notes [facility] Name: Kelsea Weber Age: 28 yrs Sex: Female : 1995 Arrival Date: 11/12/2023 Time: 06:14 Bed 3 Private MD: Diagnosis: Alcohol use, unspecified;Paresthesia of skin;Chest pain, unspecified Presentation: 11/12 06:28 Chief complaint: Patient states: Had been drinking tonight and started having right vc1 upper abdomen pain that radiates to right side of chest. Coronavirus screen: Vaccine status: Patient reports being unvaccinated. Client denies travel out of the [place] in the last 14 days. At this time, the client does not indicate any symptoms associated with coronavirus-19. Ebola Screen: Patient negative for fever greater than or equal to 101.5 degrees Fahrenheit, and additional compatible Ebola Virus Disease symptoms Patient denies exposure to infectious person. Patient denies travel to an Ebola-affected area in the 21 days before illness onset. No symptoms or risks identified at this time. Initial Sepsis Screen: Does the patient meet any 2 criteria? HR > 90 bpm. No. Patient's initial sepsis screen is negative. Does the patient have a suspected source of infection? Yes: Acute abdominal pain. Risk Assessment: Do you want to hurt yourself or someone else? Patient reports no desire to harm self or others. Onset of symptoms was November 12, 2023. 06:28 Method Of Arrival: Wheelchair vc1 06:28 Acuity: MORIAH 3 vc1 Triage Assessment: 06:35 General: Appears distressed, uncomfortable, Behavior is calm, cooperative, appropriate vc1 for age. 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 Flu vaccine is not up to date. - Social history:: Smoking status: Patient denies any tobacco usage or history of. - Family history:: not pertinent. Screenin:34 Abuse screen: Denies threats or abuse. Nutritional screening: No deficits noted. vc1 Tuberculosis screening: No symptoms or risk factors identified. 06:35 [facility] ED Fall Risk Assessment (Adult) History of falling in the last 3 months, vc1 including since admission No falls in past 3 months (0 pts) Confusion or Disorientation No (0 pts) Intoxicated or Sedated Yes (3 pts) Impaired Gait Yes (1 pt) Mobility Assist Device Used No (0 pt) Altered Elimination No (0 pt) Score/Fall Risk Level 3 or more points = High Risk Oriented to surroundings, Maintained a safe environment, Educated pt \T\ family on fall prevention, incl call for assistance when getting out of bed. Assessment: 07:00 General: 28YO HF P/W ABD PAIN AFTER ETOH INGESTION. bp 08:30 Reassessment: DC ON HOLD FOR FAMILY TRANSPORT. bp 11:04 Reassessment: PT DC WITH FAMILY. bp Vital Signs: 06:28 BP 103 / 76; Pulse 95; Resp 13; Pulse Ox 100% ; Weight 83.01 kg; Height 5 ft. 5 in. ; vc1 Pain 10/10; 08:00 BP 110 / 70; Pulse 98; Resp 17; Pulse Ox 94% ; bp 06:28 Body Mass Index 30.45 (83.01 kg, 165.1 cm) vc1 06:28 Pain Scale: Adult vc1 ED Course: 06:20 Patient arrived in ED. lg3 06:[address] MD is Attending Physician. julian 06:30 Triage completed. vc1 06:33 Arm band placed on left wrist. vc1 06:34 Patient has correct armband on for positive identification. Bed in low position. Call vc1 light in reach. Client placed on continuous cardiac and pulse oximetry monitoring. NIBP monitoring applied. 06:41 Inserted saline lock: 20 gauge in left antecubital area, using aseptic technique. Blood mc5 collected. 06:57 Attending Physician role handed off by Alexis Street MD rt 06:57 Xavier Dennis MD is Attending Physician. rt 07:01 US Abdomen Limited In Process Unspecified. EDMS 07:05 CXR XRAY In Process Unspecified. EDMS 07:19 Alejandro Harrison, RN is Primary Nurse. bp 08:07 CT Traumagram (Head C Spine CAP W Con) In Process Unspecified. EDMS 11:04 No provider procedures requiring assistance completed. IV discontinued, intact, bp bleeding controlled, No redness/swelling at site. Pressure dressing applied. Administered Medications: 08:00 Drug: NS 0.9% IV 1000 ml IV at 1 bolus Per protocol; 1000 mL bolus Route: IV; Rate: 1 bp bolus; Site: left antecubital; 11:05 Follow up: IV Status: Completed infusion; IV Intake: 1000ml bp 08:00 Drug: Thiamine IV 100 mg IV at bolus once Route: IV; Rate: bolus; Site: left bp antecubital; 11:05 Follow up: IV Status: Completed infusion; IV Intake: 100ml bp 08:00 Drug: Pantoprazole IVP 40 mg IVP once Route: IVP; Site: left antecubital; bp 11:04 Follow up: Response: No adverse reaction bp 08:00 Drug: fentaNYL (PF) IVP 25 mcg IVP once Route: IVP; Site: left antecubital; bp 11:03 Follow up: Response: No adverse reaction bp 08:00 Drug: Ondansetron IVP 4 mg IVP once; over 2 minutes Route: IVP; Site: left antecubital; bp 11:03 Follow up: Response: No adverse reaction bp 11:03 Not Given (Patient Refused): Banana Bag - (ns 0.9% 1000 ml, folic acid ivpb 1 mg, bp [id number] mg, multivitamin1 amp) IV at 500 ml/hr once Medication: 06:34 VIS not applicable for this client. vc1 Intake: 11:05 IV: 100ml; Total: 100ml. bp 11:05 IV: 1000ml; Total: 1100ml. bp Outcome: 08:34 Discharge ordered by MD. rt 11:04 Discharged to home ambulatory, with family, bp 11:04 Condition: stable 11:04 Discharge instructions given to patient, Instructed on discharge instructions, follow up and referral plans. Demonstrated understanding of instructions, follow-up care, 11:06 Patient left the ED. bp Signatures: Dispatcher [employer] EDMS Alexis Street MD MD cha Peltier, Brian RN RN bp Sayda Powell RN RN lg3 Rose Mary Anderson RN RN vc1 Xavier Dennis MD MD rt Daphne Garcia 5 Corrections: (The following items were deleted from the chart) 08:24 08:00 Banana Bag - (NS 0.9% IV 1000 ml, foLIC Acid IVPB 1 mg, Thiamine IV 100 mg, bp Multivitamin IV 1 amp) IV at 500 ml/hr in left antecubital bp
[2023-11-12 13:19] VITALS: BP 110/70; O2SAT 94
== END ==
LOC: ER 06:14
DX: R07.89 Other chest pain (principal); F10.90 Alcohol use, unspecified, uncomplicated; R20.2 Paresthesia of skin; Z28.310 Unvaccinated for COVID-19
CPT/HCPCS: 36415; 70450; 71045; 71260; 72125; 74177; 76705; 80048; 80076; 80143; 80179; 82077; 83690; 84703; 85025; 85610; 85730; 93005; C9113; J2405; J3010; J3411; J7030; Q9967